=== PATIENT | male | born 1975 | race Caucasian/White ===

== ENCOUNTER 2017-08-16 16:02 | Inpatient (IN) ==
[2017-08-16 16:46] LABS: Basophils # 0.1 K/mcL (0.0-0.2); Basophils % 0.8 %; Eosinophils # 0.2 K/mcL (0.0-0.6); Eosinophils % 2.7 %; Hematocrit 38.6 % (37.5-50.1); Immature Granulocytes % 0.3 % (0-4); Lymphocytes # 2.1 K/mcL (0.6-4.6); Mean Corpuscular HGB Conc 36.3 g/dL (31.6-35.5); Mean Corpuscular Hemoglobin 32.5 pg (28.0-33.3); Mean Corpuscular Volume 89.6 fL (83.0-100.0); Mean Platelet Volume 9.8 fL (9.4-12.4); Monocytes # 0.5 K/mcL (0.0-1.3); Monocytes % 6.6 %; Nucleated Red Blood Cells 0.3 /100 WBC (0); Platelet Count 246 K/mcL (140-400); Red Blood Count 4.31 M/mcL (4.19-5.50); Red Cell Distribution Width 12.3 % (11.5-14.5); Segmented Neutrophils % 63.6 %
[2017-08-16 16:51] LABS: INR 1.1; Prothrombin Time 11.7 Seconds (9.4-12.1)
[2017-08-16 16:54] LABS: Activated Partial Thrombo Time 29.5 Seconds (26.0-36.0)
[2017-08-16 16:56] LABS: D-Dimer < 215 ng/mLFEU (0-500)
[2017-08-16] MEDS ORDERED: Ondansetron 4 MG/2 ML VIAL IVP ONE (17:15)
[2017-08-16] MEDS ORDERED: Aspirin 81 MG TAB.CHEW PO STA (17:25)
--- NOTE | 2017-08-16 17:26 | Emergency Department Note ---
Disposition Clinical Impression: Chest pain Qualifiers: Chest pain type: unspecified Qualified Code(s): R07.9 - Chest pain, unspecified Headache Qualifiers: Headache type: unspecified Headache chronicity pattern: acute headache Intractability: not intractable Qualified Code(s): R51 - Headache Disposition: Admitted As Inpatient Condition: Fair Time of Disposition: 18:53 General Adult HPI - General Chief complaint: ED Chest Pain Stated complaint: chest pain/lethargic/slumped over Source: patient, EMS Mode of arrival: EMS Limitations: no limitations Nursing Notes Reviewed: Yes Vital Signs Reviewed: Yes - History of Present Illness HPI Narrative: Patient is a 41-year-old male that presents the emergency department for severe headache and chest pain. Patient states that he was in an argument with his ex- on the telephone and he developed a severe headache and chest pain that radiated into his left arm. Patient states that he developed the headache and chest pain and then does not remember anything until he woke up in the rain. EMS reports that he did not fall. The people that were at the scene, him and helped him to the ground. There was no other injuries at this time. The patient does state that he has an extensive cardiac history and had a catheter approximately 7 months ago and had 6 stents placed here at [facility]. Patient states that this chest pain is different than when he had his cardiac symptoms. He states that this is more sharp and painful he says his cardiac pain was more slow onset. Pain Scale: 6 - Related Data Home Medications Medication Instructions Recorded Confirmed Insulin NPH, HUMAN [HumuLIN N] 30 unit SQ BID 02/21/16 08/16/17 Carvedilol [Carvedilol] 3.125 mg PO DAILY 08/16/17 08/16/17 Previous Rx's Medication Instructions Recorded Aspirin Enteric Coated [Aspirin EC] 81 mg PO BID #30 tablet. 01/11/17 Atorvastatin [Lipitor] 80 mg PO HS #30 tablet 01/11/17 Clopidogrel [Plavix] 75 mg PO DAILY #30 tablet 01/11/17 Isosorbide MONOnitrate (24 HR) 30 mg PO DAILY #30 tab.er.24h 01/11/17 [Imdur] Lisinopril [Zestril] 5 mg PO DAILY #30 tablet 01/11/17 Nitroglycerin 0.4 mg SL Q5M PRN #30 tab.subl 10/12/17 Allergies Allergy/AdvReac Type Severity Reaction Status Date / Time No Known Allergies Allergy Verified 08/16/17 16:05 All systems ED: reviewed and negative except as stated. Constitutional: Denies: fever Cardiovascular: Reports: chest pain Respiratory: Reports: dyspnea Gastrointestinal: Denies: abdominal pain, nausea, vomiting Neurological: Reports: headache. Denies: weakness, numbness, paresthesias Past Medical History - Past Medical History Medical history: Reports: coronary artery disease, diabetes, GERD, myocardial infarction, other Surgical history: Reports: angioplasty/stent, orthopedic, other, other Psychiatric history: Reports: anxiety, depression - Social History Smoking Status: Former smoker Smokeless Tobacco Status: No Alcohol use: Reports: occasionally Drug use: Reports: none Physical Exam - General Limitations: no limitations General appearance: alert, in no apparent distress - Head Head exam: atraumatic, normocephalic - Eye Eye exam: Present: normal appearance, EOMI - Neck Neck exam: Present: normal inspection, full ROM, trachea midline - Chest Chest inspection: Present: normal inspection, symmetric chest wall rise. Absent : tenderness - Respiratory Respiratory exam: Present: normal lung sounds bilaterally. Absent: respiratory distress, wheezes - Cardiovascular Cardiovascular exam: Present: regular rate, normal rhythm, normal heart sounds, +S1, +S2 - Abdominal Exam Abdominal exam: Present: soft, Non-Tender, normal bowel sounds - Neurological Exam Neurological exam: Present: alert, oriented X3 - Expanded Neurological Exam Speech: Present: fluid speech Cranial nerves: EOM function (II, III, IV, ): Normal, facial sensation (V): Normal, facial palsy (VII): Normal, gag reflex (IX): Normal, spinal accessory function (XI): Normal, tongue deviation (XII): Normal Cerebellar function: finger to nose: Normal, heel to singleton: Normal Motor strength - LUE: 5/5 Motor strength - RUE: 5/5 Motor strength - LLE: 5/5 Motor strength - RLE: 5/5 Upper motor neuron exam: pronator drift: Absent bilaterally Sensory exam upper extremity: light touch: Normal Sensory exam lower extremity: light touch: Normal Coma Scale Eye Opening: Spontaneous Coma Scale Motor Response: Obeys Commands Coma Scale Verbal Response: Oriented Coma Scale Total: 15 - Psychiatric Psychiatric exam: Present: normal affect, normal mood - Skin Skin exam: Present: warm, dry, intact Course - Reevaluation(s) Reevaluation #1: The EMS team that brought the patient to the emergency department called and notified myself at 1719 that instead of giving 6 mg of morphine as directed by the physician and they had mistakenly given 6 mg of Versed in transit. EMS reported that the Versed was in the incorrect place due to being on a shortage of morphine and the wrong medication was administered area they stated that they contacted their certified medical assistant Dr. Oral Porras and then informed myself. Time: 17:19 Vital Signs Temperature 97.6 F 08/16/17 16:08 Pulse Rate 74 08/16/17 16:08 Respiratory Rate 20 08/16/17 16:08 Blood Pressure 152/95 08/16/17 16:08 O2 Sat by Pulse Oximetry 96 08/16/17 16:08 Temperature 97.6 F 08/16/17 16:08 Pulse Rate 71 08/16/17 18:30 Respiratory Rate 20 08/16/17 18:30 Blood Pressure 114/81 08/16/17 18:30 O2 Sat by Pulse Oximetry 97 08/16/17 18:30 Oxygen Delivery Oxygen Delivery Room Air Medical Decision Making - MDM Narrative Medical decision making narrative: Due to the patient presenting to the emergency department with acute onset chest pain and headache we will obtain a cardiac workup including a CBC, BMP, troponin chest x-ray EKG and a d-dimer. The patient having a headache we will obtain a CT of the head to rule out possible intracranial pathology. The patient's CT scan was negative for acute findings. The patient does not have an elevated troponin. His EKG does not show any acute ischemic changes at this time. The remainder of his laboratory testing was unremarkable. However due to the patient having such an extensive cardiac history I feel that is necessary for the patient to be admitted to the hospital for further evaluation and management and ACS rule out. I called and spoke with the hospitalist Dr. Hinojosa and he is except the patient to their service. The patient will be admitted to the hospital for further evaluation and management this time. - Medical Records Medical records reviewed: Yes I reviewed the patient's medical records. - Lab Data Lab results reviewed: Yes I reviewed the patient's lab results. Result diagrams: 08/16/17 16:18 05/17/18 17:27 Lab Results 08/16/17 08/16/17 08/16/17 Range/Units 16:18 16:18 16:18 WBC 7.9 (4.3-11.1) K/mcL RBC 4.31 (4.19-5.50) M/mcL Hgb 14.0 (12.9-16.9) g/dL Hct 38.6 (37.5-50.1) % MCV 89.6 (83.0-100.0) fL MCH 32.5 (28.0-33.3) pg MCHC 36.3 H (31.6-35.5) g/dL RDW 12.3 (11.5-14.5) % Plt Count 246 (140-400) K/mcL MPV 9.8 (9.4-12.4) fL Immature Gran % 0.3 (0-4) % Seg Neutrophils % 63.6 % Lymphocytes % 26.0 % Monocytes % 6.6 % Eosinophils % 2.7 % Basophils % 0.8 % Neutrophils # 5.0 (1.6-8.9) K/mcL Lymphocytes # 2.1 (0.6-4.6) K/mcL Monocytes # 0.5 (0.0-1.3) K/mcL Eosinophils # 0.2 (0.0-0.6) K/mcL Basophils # 0.1 (0.0-0.2) K/mcL Nucleated RBCs/100 WBC 0.3 H (0) /100 WBC PT 11.7 (9.4-12.1) Seconds INR 1.1 APTT 29.5 (26.0-36.0) Seconds D-Dimer < 215 (0-500) ng/mLFEU Sodium Potassium Chloride Carbon Dioxide BUN Creatinine Est GFR ( Amer) Est GFR (Non-Af Amer) BUN/Creatinine Ratio Glucose Calculated Osmolality Calcium Troponin I (< 0.04) ng/mL B-Natriuretic Peptide 14 (Less than 100) pg/mL Specimen Rejected 08/16/17 08/16/17 08/16/17 Range/Units :18 17:20 17:27 WBC (4.3-11.1) K/mcL RBC (4.19-5.50) M/mcL Hgb (12.9-16.9) g/dL Hct (37.5-50.1) % MCV (83.0-100.0) fL MCH (28.0-33.3) pg MCHC (31.6-35.5) g/dL RDW (11.5-14.5) % Plt Count (140-400) K/mcL MPV (9.4-12.4) fL Immature Gran % (0-4) % Seg Neutrophils % % Lymphocytes % % Monocytes % % Eosinophils % % Basophils % % Neutrophils # (1.6-8.9) K/mcL Lymphocytes # (0.6-4.6) K/mcL Monocytes # (0.0-1.3) K/mcL Eosinophils # (0.0-0.6) K/mcL Basophils # (0.0-0.2) K/mcL Nucleated RBCs/100 WBC (0) /100 WBC PT (9.4-12.1) Seconds INR APTT (26.0-36.0) Seconds D-Dimer (0-500) ng/mLFEU Sodium Cancelled 138 Potassium Cancelled 3.5 Chloride Cancelled 105 Carbon Dioxide Cancelled 27 BUN Cancelled 17 Creatinine Cancelled 0.74 Est GFR ( Amer) Cancelled > 60 Est GFR (Non-Af Amer) Cancelled > 60 BUN/Creatinine Ratio Cancelled 23 Glucose Cancelled 95 Calculated Osmolality Cancelled 287 Calcium Cancelled 8.9 Troponin I < 0.03 (< 0.04) ng/mL B-Natriuretic Peptide (Less than 100) pg/mL Specimen Rejected Hemolyzed - Radiology Data Radiology results reviewed: Yes I reviewed the patient's radiology results. Chest X-Ray 08/16/17 16:10 IMPRESSION: No radiographic evidence of acute cardiopulmonary disease. D/ / Enrique Rollins / Enrique Rollins Interpreting Provider: Enrique Rollins Head CT 08/16/17 16:10 IMPRESSION: No acute intracranial abnormality. Mild mucoperiosteal thickening in the left sphenoid sinus. D/ / Cara Zamudio MD / Cara Zamudio MD Interpreting Provider: Cara Zamudio MD - EKG Data EKG #1 EKG attestation: Yes I reviewed and interpreted this EKG. EKG results narrative: EKG shows sinus rhythm with evidence of an incomplete right bundle. At a rate of 78 bpm, AK interval 168, QRS duration 106, QTc of or 36 with a normal axis. There is no evidence of STEMI on EKG. This was compared to previous EKG on 02/16 Attestation Statement - Attestation Attestation: I examined this patient and my medical decision-making was reviewed with the Resident Physician, Dr. Chang. I agree with the documented findings, disposition and treatment plan as described except to the extent set forth below. Patient is a 41-year-old white male with a history of extensive cardiac disease with prior MS, multiple catheterizations requiring stent placement last of which was in December when he said he had 6 stents placed. Patient was in an argument with his ex- on the phone today and during the argument developed gradual onset chest discomfort tightness as well as a generalized headache. Patient became very upset and worked up and subsequently had a syncopal episode. Patient was around others to help him to the ground so he did not fall or injure himself when he had the syncopal episode. When medics arrived he was complaining of severe chest pain and headache. In route they requested medical direction for administration of medication and they were told to administer 6 noted grams of morphine and accidentally had given him 6 mg first that so patient was drowsy on arrival. Patient did not receive aspirin or nitroglycerin in route by EMS. I agree with patient's physical exam findings as documented. I was physically present for initial assessment and report by EMS as well as reevaluation of the patient on the emergency department. Vital signs are stable. Symptoms were improving at time of arrival. Patient's EKG was normal sinus rhythm with no acute ischemic changes appreciated. Patient underwent laboratory evaluation for cardiac complaints as well as sent for CT head for further evaluation of his headache complaints. All of patient's testing up to this point within normal limits and due to extensive cardiac history we will admit him for further evaluation and management. Patient's symptoms have resolved and he is resting comfortably at this time with no complaints. Case was discussed with hospitalist who accepted patient for admission.
[2017-08-16 17:57] LABS: BUN/Creatinine Ratio 23 (6-26); Blood Urea Nitrogen 17 mg/dL (6-20); Calcium 8.9 mg/dL (8.6-10.3); Carbon Dioxide 27 mEq/L (23-29); Chloride 105 mEq/L (98-107); Glucose 95 mg/dL (70-105); Osmolality,Calculated 287 (280-300); Potassium 3.5 mEq/L (3.5-5.1); Sodium 138 mEq/L (136-145); eGFR For African Americans > 60 (> 60); eGFR For Non-African Americans > 60 (> 60)
[2017-08-16] MEDS: Nitroglycerin 0.4 MG TAB.SUBL SL PRN ×2 (18:21→18:26)
[2017-08-16] MEDS ORDERED: Dextrose Gel 15 GM/37.5 ML TUBE PO PRN ×2 (22:07)
[2017-08-16] MEDS ORDERED: Naloxone 0.4 MG/ML INJ IVP PRN (22:07)
[2017-08-16] MEDS ORDERED: D5% in Water 1,000 ML IVC PRN (22:07)
[2017-08-16] MEDS ORDERED: *HR* Dextrose 50 % in Water (Syg) 50 ML SYRINGE IVP PRN (22:07)
[2017-08-16] MEDS ORDERED: Melatonin 3 MG TABLET PO PRN (22:26)
--- NOTE | 2017-08-16 22:29 | Internal Med History&Physical ---
Date of Encounter: 08/16/17 Time of Encounter: 21:00 Internal Medicine - H&P: HPI Chief complaint: "Chest pain" Admitted From: Emergency Dept Plans for Post Hospital Care: Home History of present illness: Mr. Multani is a 41 year old male who presented to ED via EMS for chest pain. He states that he "got into an intense argument on the phone" and started having chest pain. He states pain was located in middle to left chest and radiated in to left arm. He had a headache during this time. He calls it a "migraine," but states that he has not been diagnosed with migraines. He does not have nausea, vomiting, photophobia, phonophobia, or other associated neurological symptoms. Headaches is also diffusely across whole head. He states that he has an extensive cardiac history that started about 2 years ago. He most recently had "6 stents" placed about 7 months ago here. He states that chest pain is now resolved. Headache is now nearly resolved. Labwork in ED, including initial troponin is WNL. I was asked to admit patient for chest pain ruleout. Past Med Surg Social Fam HX - Past Medical History Attestation: Yes The following information was validated with the patient. Medical history: coronary artery disease, diabetes, GERD, myocardial infarction , other Psychiatric history: anxiety, depression - Past Surgical History Surgical History: angioplasty/stent, orthopedic, other, other - Social History Smoking Status: Former smoker Smokeless Tobacco Status: No Alcohol use: occasionally Drug use: none - Family History Father Living Status: Still Living Hx Family Cardiac Disorders: Yes Hx Family Respiratory Disorders: No Hx Family Cancer: No Hx Family GI Disorders: No Hx Family Endocrine Disorder: Yes Hx Family Neuromuscular Disorders: No Hx Family Neurologic Disorders: No Hx Family HEENT Disorders: No Hx Family Autoimmune Disorders: No Mother Hx Family Cardiac Disorders: Yes (CHF) Hx Family Respiratory Disorders: No Hx Family Cancer: No Hx Family GI Disorders: No Hx Family Endocrine Disorder: Yes (DM) Hx Family Neuromuscular Disorders: No Hx Family Neurologic Disorders: No Hx Family HEENT Disorders: No Hx Family Autoimmune Disorders: No - Additional Family History Additional family history: Family history reviewed with patient. Internal Medicine - H&P: Meds Insulin NPH, HUMAN [HumuLIN N] 30 unit SQ BID 02/21/16 [History] Aspirin Enteric Coated [Aspirin EC] 81 mg PO BID #30 tablet. 01/11/17 [Rx] Atorvastatin [Lipitor] 80 mg PO HS #30 tablet 01/11/17 [Rx] Clopidogrel [Plavix] 75 mg PO DAILY #30 tablet 01/11/17 [Rx] Isosorbide MONOnitrate (24 HR) [Imdur] 30 mg PO DAILY #30 tab.er.24h 01/11/17 [ Rx] Lisinopril [Zestril] 5 mg PO DAILY #30 tablet 01/11/17 [Rx] Nitroglycerin 0.4 mg SL Q5M PRN #30 tab.subl 01/11/17 [Rx] Carvedilol [Carvedilol] 3.125 mg PO DAILY 08/16/17 [History] 3 Allergy/AdvReac Type Severity Reaction Status Date / Time No Known Allergies Allergy Verified 08/16/17 16:05 All Systems PM: A 10-system review of systems was performed and is negative for pertinent findings except as documented above in the HPI. - Constitutional Constitutional: no anorexia, no chills, no fatigue, no fever(s), no lethargy, no malaise, no weakness, no weight gain, no weight loss - EENT Eyes: no blurry vision, no diplopia, no dry eye, no irritation, no loss of vision, no photophobia, no seeing flashes, no spots in vision, no other visual disturbances Nose, mouth and throat: no dysphagia, no facial pain, no mouth lesions, no mouth pain, no nasal congestion, no nasal discharge, no sinus pain, no sinus pressure, no sore throat - Cardiovascular Cardiovascular ROS IM: chest pain, no diaphoresis, no dyspnea, no dyspnea on exertion, no edema, no lightheadedness, no palpitations, no syncope - Respiratory Respiratory: no cough, no dyspnea, no hemoptysis, no dyspnea on exertion, no wheezing, no chest congestion, no excessive phlegm production - Gastrointestinal Gastrointestinal: no abdominal pain, no change in bowel habits, no constipation , no diarrhea, no dysphagia, no heartburn, no hematemesis, no hematochezia, no melena, no nausea, no vomiting - Genitourinary Genitourinary ROS male: no difficulty urinating, no dysuria, no flank pain, no hematuria, no urinary frequency, no urinary hesitancy, no urinary incontinence, no urinary urgency - Musculoskeletal Musculoskeletal ROS IM: no arthralgias, no back pain, no joint swelling, no limited range of motion, no muscle weakness, no myalgias, no numbness, no tingling - Integumentary Integumentary IM: no erythema, no new lesions, no rash, no skin ulcer, no jaundice - Neurological Neurological ROS: headache(s), no abnormal gait, no abnormal hearing, no abnormal movements, no abnormal speech, no behavioral changes, no confusion, no dizziness, no focal weakness, no numbness, no paresthesias, no tingling, no vertigo, no weakness - Psychiatric Psychiatric: no anxiety, no behavioral changes, no confusion, no depression, no irritability - Endocrine Endocrine IM: no cold intolerance, no fatigue, no heat intolerance, no polydipsia, no polyphagia, no polyuria - Hematologic/Lymphatic Hematologic/Lymphatic: no easy bleeding, no easy bruising, no lymphadenopathy - Constitutional Vitals: Temp Pulse Resp BP Pulse Ox 97.6 F 73 15 133/74 98 08/16/17 20:48 08/16/17 20:48 08/16/17 20:48 08/16/17 20:48 08/16/17 20:48 General appearance: Present: cooperative, A&O X 3, pleasant, no acute distress, obese, answers questions appropriately - Head Head exam: Present: atraumatic, normal inspection, normocephalic - Eye Eye exam: Present: EOMI, normal appearance, PERRL. Absent: conjunctival injection, nystagmus, scleral icterus - ENT ENT exam: Present: mucous membranes moist, normal external ear exam, normal oropharynx - Neck Neck exam general surgery: Present: supple, trachea midline. Absent: lymphadenopathy, tenderness, thyromegaly - Respiratory Respiratory exam: Present: CTAB. Absent: accessory muscle use, rales, rhonchi, wheezes Additional comments: Normal WOB - Cardiovascular Cardiovascular exam: Present: RRR, +S1, +S2. Absent: diastolic murmur, gallop, rubs, systolic murmur Additional comments: No BLE edema - GI/Abdominal GI/Abdominal exam: Present: normal bowel sounds, soft. Absent: distended, hepatomegaly, mass, splenomegaly, tenderness - Neurological Exam Neurological exam: Present: alert, CN II-XII intact, oriented X3, no focal deficits, strengths equal and symetr throughout. Absent: motor sensory deficit , facial droop, speech deficit - Psychiatric Psychiatric exam: Present: normal affect, normal mood. Absent: agitated, anxious, depressed - Skin Skin exam: Present: dry, intact, warm. Absent: cyanosis, rash Internal Med - H&P Results - Labs CBC & Chem 7: 08/16/17 16:18 08/16/17 17:27 Labs: Cardiac Enzymes 08/16/17 Range/Units 21:15 Troponin I < 0.03 (< 0.04) ng/mL - Assessment and plan (1) Chest pain Current Visit: Yes Status: Acute Assessment and plan: Admit for observation for ACS ruleout. Trend troponin x 3; initial troponin in ED WNL. Start supplemental O2; no SOB at this time. Continue nitro and Tylenol PRN pain; chest pain is resolved at this time. Start telemetry. Obtain ECHO and stress test in AM. Continue home aspirin, lipitor, lisinopril, coreg, and plavix. Start lovenox 40 mg SQ QD and SCDs for DVT prophylaxis. NPO after midnight. Qualifiers: Chest pain type: other chest pain Qualified Code(s): R07.89 - Other chest pain; R07.8 - Other chest pain (2) Headache Current Visit: Yes Status: Acute Assessment and plan: Nearly resolved at this time. Based on history and physical exam, this is not a migraine. Likely tension headache and maybe nitro effect. Start tylenol PRN pain. Can use zofran PRN nausea/vomiting. Qualifiers: Headache type: tension-type Headache chronicity pattern: acute headache Intractability: not intractable Qualified Code(s): G44.209 - Tension-type headache, unspecified, not intractable (3) CAD (coronary artery disease) Current Visit: No Status: Acute Assessment and plan: Management as per above. All home medications continued. Qualifiers: Coronary Disease-Associated Artery/Lesion type: [place] artery [place] vs. transplanted heart: [place] heart Associated angina: without angina Qualified Code(s): I25.10 - Atherosclerotic heart disease of [place] coronary artery without angina pectoris (4) Diabetes Current Visit: No Status: Acute Assessment and plan: He says Type II DM is now well-controlled. Last A1C was "6 something." Start accuchecks and low dose SSI QID AC/HS. Will resume home insulin regimen when taking PO. 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
[2017-08-16] MEDS: Isosorbide MONOnitrate (24 HR) 30 MG TAB.ER.24H PO SCH ×2 (22:39→22:59)
[2017-08-16] MEDS: Insulin NPH 100 UNIT/ML (x5UNIT) SQ SCH (22:40)
[2017-08-16] MEDS: Insulin LISPRO 300 UNITS/3 ML VIAL SQ SCH (22:44)
[2017-08-16] MEDS: 0.9 % Sodium Chloride 1,000 ML IVC SCH (22:56)
[2017-08-17 03:25] LABS: Basophils # 0.1 K/mcL (0.0-0.2); Basophils % 1.2 %; Eosinophils # 0.2 K/mcL (0.0-0.6); Eosinophils % 3.6 %; Hematocrit 38.3 % (37.5-50.1); Hemoglobin 13.8 g/dL (12.9-16.9); Immature Granulocytes % 0.2 % (0-4); Lymphocytes # 2.1 K/mcL (0.6-4.6); Lymphocytes % 34.2 %; Mean Corpuscular Hemoglobin 32.3 pg (28.0-33.3); Mean Corpuscular Volume 89.7 fL (83.0-100.0); Mean Platelet Volume 9.7 fL (9.4-12.4); Monocytes # 0.6 K/mcL (0.0-1.3); Monocytes % 9.9 %; Neutrophils # 3.1 K/mcL (1.6-8.9); Platelet Count 233 K/mcL (140-400); Red Blood Count 4.27 M/mcL (4.19-5.50); Red Cell Distribution Width 12.5 % (11.5-14.5); Segmented Neutrophils % 50.9 %
[2017-08-17 03:40] LABS: BUN/Creatinine Ratio 25 (6-26); Blood Urea Nitrogen 17 mg/dL (6-20); Calcium 8.6 mg/dL (8.6-10.3); Carbon Dioxide 25 mEq/L (23-29); Chloride 108 mEq/L (98-107); Glucose 221 mg/dL (70-105); Osmolality,Calculated 298 (280-300); Potassium 3.8 mEq/L (3.5-5.1); Sodium 140 mEq/L (136-145); eGFR For African Americans > 60 (> 60); eGFR For Non-African Americans > 60 (> 60)
[2017-08-17] MEDS: Insulin LISPRO 300 UNITS/3 ML VIAL SQ SCH ×2 (05:22→17:49)
[2017-08-17] MEDS ORDERED: *HR* Enoxaparin 40 MG/0.4 ML SYRINGE SQ SCH (06:00)
[2017-08-17 09:27] LABS: Estimated Average Glucose 157 mg/dl; Hemoglobin A1C 7.1 %
[2017-08-17] MEDS: Aspirin Enteric Coated 81 MG Tablet PO SCH ×2 (09:40→20:45)
[2017-08-17] MEDS: Insulin NPH 100 UNIT/ML (x5UNIT) SQ SCH ×2 (09:40→20:46)
[2017-08-17] MEDS: Isosorbide MONOnitrate (24 HR) 30 MG TAB.ER.24H PO SCH ×2 (09:41→19:02)
[2017-08-17] MEDS ORDERED: *HR* Heparin 10,000 UNIT/10 ML VIAL ONE (12:29)
[2017-08-17] MEDS ORDERED: Heparin 1,000 UNITS/500 mL 500 ML ONE (12:29)
[2017-08-17] MEDS ORDERED: ISOVUE-370 200 ML INFUS..BTL IV ONE (12:29)
[2017-08-17] MEDS ORDERED: 0.9 % Sodium Chloride 1,000 ML ONE ×2 (12:29→14:12)
--- NOTE | 2017-08-17 12:44 | Cardiology Consult Note ---
Date of Encounter: 08/17/17 Time of Encounter: 12:42 Assessment and Plan (1) Chest pain Current Visit: Yes Status: Acute 41-year-old male with atypical chest pain and multiple cardiac risk factors including diabetes and 6/10 in the last 2 years presents with chest pain. Stress test with inferior and inferior lateral reversible ischemia and ejection fraction of 53% we discussed a left heart catheterization including risks, benefits, and alternatives and the patient agrees to proceed Qualifiers: Chest pain type: unspecified Qualified Code(s): R07.9 - Chest pain, unspecified Discussion w patient/family: The assessment and plan as outlined above was discussed with the patient and/or family members who expressed understanding and agreement. All questions were answered. Thank you for involving us in the care of your patient. Please call with any questions. History of Present Illness Consult date: 08/17/17 Consult reason: chest pain Chief complaint: chest pain History of present illness: Mr. Multani is a 41 year old male diabetic, history of coronary artery disease status post 6 stents in the last 2 years presents with chest pain retrosternal radiating down the left upper extremity associated with the headache. Stress test shows inferior and inferolateral reversible ischemia with a preserved ejection fraction 55% is chest pain-free denies any orthopnea, PND, presyncope or syncope Past Med Surg Social Fam HX - Past Medical History Medical history: coronary artery disease, diabetes, GERD, myocardial infarction , other Psychiatric history: anxiety, depression - Past Surgical History Surgical History: angioplasty/stent, orthopedic, other, other - Social History Smoking Status: Former smoker Smokeless Tobacco Status: No Alcohol use: occasionally Drug use: none - Family History Father Living Status: Still Living Hx Family Cardiac Disorders: Yes Hx Family Respiratory Disorders: No Hx Family Cancer: No Hx Family GI Disorders: No Hx Family Endocrine Disorder: Yes Hx Family Neuromuscular Disorders: No Hx Family Neurologic Disorders: No Hx Family HEENT Disorders: No Hx Family Autoimmune Disorders: No Mother Hx Family Cardiac Disorders: Yes (CHF) Hx Family Respiratory Disorders: No Hx Family Cancer: No Hx Family GI Disorders: No Hx Family Endocrine Disorder: Yes (DM) Hx Family Neuromuscular Disorders: No Hx Family Neurologic Disorders: No Hx Family HEENT Disorders: No Hx Family Autoimmune Disorders: No Medications and Allergies Insulin NPH, HUMAN [HumuLIN N] 30 unit SQ BID 02/21/16 [History] Aspirin Enteric Coated [Aspirin EC] 81 mg PO BID #30 tablet.dr 01/11/17 [Rx] Atorvastatin [Lipitor] 80 mg PO HS #30 tablet 01/11/17 [Rx] Clopidogrel [Plavix] 75 mg PO DAILY #30 tablet 01/11/17 [Rx] Isosorbide MONOnitrate (24 HR) [Imdur] 30 mg PO DAILY #30 tab.er.24h 01/11/17 [ Rx] Lisinopril [Zestril] 5 mg PO DAILY #30 tablet 01/11/17 [Rx] Nitroglycerin 0.4 mg SL Q5M PRN #30 tab.subl 01/11/17 [Rx] Carvedilol [Carvedilol] 3.125 mg PO DAILY 08/16/17 [History] 3 Allergy/AdvReac Type Severity Reaction Status Date / Time No Known Allergies Allergy Verified 08/16/17 16:05 All Systems Review: The remainder of the systems were reviewed and are negative Physical Examination Vital Signs, Last 4 Hours Temp Pulse Resp BP Pulse Ox 08/17/17 10:10 98.2 F 76 15 122/78 97 General: Conversant, No Apparent Distress HEENT: Atraumatic, Normocephaly, Mucus Membranes Moist Neck: No JVD, Normal carotid pulses Cardiac: Reg Rate and Rhythm, Normal S1 and S2, No Murmur Lungs: Normal Breath Sounds, No Wheeze, Rales, Rhonchi Neuro: Alert and responsive, No focal deficits noted Abdomen: Soft, Non-Tender Skin: No rashes noted on visualized skin Musculoskeletal: No Chest Wall Tenderness Extremities: No Clubbing, No Cyanosis, No Edema, Normal Pulses Results 08/17/17 03:09 08/17/17 03:09 Lab Results 08/16/17 08/17/17 08/17/17 21:15 03:09 03:09 WBC 6.1 Hgb 13.8 Hct 38.3 Plt Count 233 Sodium Potassium Chloride Carbon Dioxide BUN Creatinine Glucose Calcium Troponin I < 0.03 < 0.03 08/17/17 08/17/17 03:09 09:23 WBC Hgb Hct Plt Count Sodium 140 Potassium 3.8 Chloride 108 H Carbon Dioxide 25 BUN 17 Creatinine 0.69 L Glucose 221 H Calcium 8.6 Troponin I < 0.03 Consult Discharge Plan - Plan Referrals: Moises Boswell MD [Primary Care Provider] -
--- NOTE | 2017-08-17 13:53 | Internal Med Progress Note ---
Date of Encounter: 08/17/17 Time of Encounter: 13:52 - Assessment and plan (1) Chest pain Current Visit: Yes Status: Acute Assessment and plan: 41-year-old male with history of CAD with stents placement presented with acute onset of chest pain. He underwent stress test today which revealed reversible inferior and lateral wall ischemia. Cardiology was consulted and the left heart cath was planned. - Patient had a CAD and had a 6 stents placed, currently on aspirin and Plavix. - His CV risk factor including hypertension, diabetes, and hyperlipidemia. Risk factor modification discussed with patient including tight control of blood glucose, blood pressure, and low-salt low-fat diet. Qualifiers: Chest pain type: unspecified Qualified Code(s): R07.9 - Chest pain, unspecified (2) Diabetes Current Visit: No Status: Chronic Assessment and plan: Hgb A1c 7.1, BG well controlled, Continue current insulin regimen. 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 Qualifiers: Coronary Disease-Associated Artery/Lesion type: [place] artery [place] vs. transplanted heart: [place] heart Associated angina: without angina Qualified Code(s): I25.10 - Atherosclerotic heart disease of [place] coronary artery without angina pectoris (4) Headache Current Visit: Yes Status: Resolved Qualifiers: Headache type: tension-type Headache chronicity pattern: acute headache Intractability: not intractable Qualified Code(s): G44.209 - Tension-type headache, unspecified, not intractable - Time Spent With Patient Total time spent is greater than 50% in coordination of care (as documented) at patient's floor/unit and/or counseling patient: Greater than 35 minutes - Subjective Interval history: Patient seen and examined in the room, he has no chest pain at this moment. - Constitutional Vitals: Temp Pulse Resp BP Pulse Ox 98.2 F 76 15 122/78 97 08/17/17 10:10 08/17/17 10:10 08/17/17 10:10 08/17/17 10:10 08/17/17 10:10 General appearance: Present: cooperative, A&O X 3, pleasant, no acute distress, obese, answers questions appropriately Exam: PHYSICAL EXAMINATION: GENERAL APPEARANCE: The patient is alert, oriented and in no acute distress. HEENT: Head is normocephalic. The sinuses are nontender. Pupils are equal and reactive. The nares are patent. Oropharynx clear without lesions. NECK: Supple without lymphadenopathy. HEART: Regular rate and rhythm. LUNGS: No crackles or wheezes are heard. ABDOMEN: Soft, nontender, nondistended with good bowel sounds heard. Inguinal area is normal. EXTREMITIES: Without cyanosis, clubbing or edema. NEUROLOGICAL: Gross nonfocal. SKIN: Warm and dry without any rash. Internal Medicine: Result - Labs CBC & Chem 7: 08/17/17 03:09 08/17/17 03:09 Labs: Short CBC 08/17/17 Range/Units 03:09 WBC 6.1 (4.3-11.1) K/mcL Hgb 13.8 (12.9-16.9) g/dL Hct 38.3 (37.5-50.1) % Plt Count 233 (140-400) K/mcL Neutrophils # 3.1 (1.6-8.9) K/mcL BMP 08/17/17 03:09 Sodium 140 Potassium 3.8 Chloride 108 H Carbon Dioxide 25 BUN 17 Creatinine 0.69 L Glucose 221 H Calcium 8.6 Cardiac Enzymes 08/16/17 08/17/17 08/17/17 Range/Units 21:15 03:09 09:23 Troponin I < 0.03 < 0.03 < 0.03 (< 0.04) ng/mL - ABG Interpretation ABG results: PT/INR, D-dimer PT 11.7 Seconds (9.4-12.1) 08/16/17 16:18 D-Dimer < 215 ng/mLFEU (0-500) 08/16/17 16:18 - Impressions Impressions Echocardiogram Limited Views 08/17/17 22:05 Impressions: LVEF 60%. Normal LV chamber size, wall thickness and function. No evidence of a PFO with agitated saline contrast. Left Ventricular Wall Motion: Rest Echo Findings All wall segments showed normal motion. Findings: Study Quality * Technically adequate exam. ECG Findings * Normal sinus rhythm. Left Ventricle * LVEF 60%. * Normal LV chamber size, wall thickness and function. Right Ventricle * Normal right ventricular structure and function. Left Atrium * Mildly dilated left atrium. Right Atrium * Mildly dilated right atrium. Aorta * Normally sized aortic root. Pericardium * The pericardium appears normal. Interatrial Septum * No evidence of a PFO with agitated saline contrast. - VTE Documentation of Mechanical Device: Intermittent pneumatic compression device Consult Discharge Plan - Plan Referrals: Moises Boswell MD [Primary Care Provider] -
[2017-08-17] MEDS ORDERED: *HR* Midazolam HCl 5 MG/5 ML VIAL IVP ONE (14:11)
[2017-08-17] MEDS ORDERED: *HR* Bivalirudin 250 MG VIAL IVC ONE (14:17)
--- NOTE | 2017-08-17 14:19 | Pre-Sedation Evaluation ---
Pre-sedation evaluation - Pre-sedation checklist Procedure: [facility] Recent Vitals: Last Vital Signs Temp 98.2 F 08/17/17 10:10 Pulse 76 08/17/17 10:10 Resp 15 08/17/17 10:10 BP 122/78 08/17/17 10:10 Pulse Ox 97 08/17/17 10:10 H&P (including ROS) documented in medical record: Yes Previous reaction to sedatives/anesthetics: No Dietary Status: NPO after Midnight Dentition: No loose teeth or bridges Possible difficult airway: No ASA Classification *see protocol: CLASS III-Severe systemic disease Plan of Care: Pt appropriate candidate for procedure/moderate/conscious sedation , Risks/benefits of procedure/sedation discussed w/ patient/family, If not NPO; Risk of intake outweiged by necessity to perform procedure
[2017-08-17] MEDS ORDERED: Nitroglycerin 1,000 MCG/10 ML VIAL IV ONE (14:23)
[2017-08-17] MEDS ORDERED: *HR* Midazolam HCl 2 MG/2 ML VIAL ONE (15:00)
--- NOTE | 2017-08-17 16:20 | Cardiothoracic Consult Note ---
Date of Encounter: 08/17/17 Time of Encounter: 16:16 Assessment and Plan (1) CAD (coronary artery disease) Current Visit: No Status: Chronic The assessment and plan as outlined above was discussed with the patient and/or family members who expressed understanding and agreement. All questions were answered. The patient does have triple-vessel disease and is a candidate for coronary artery bypass grafting. He does have in-stent stenosis. He did receive Plavix yesterday and we will stop this. The procedure, its risks, benefits and alternatives were explained and he does wish to proceed. We will tentatively schedule his open heart surgery for Sunday. At this point, the patient and his girlfriend have no questions. Qualifiers: Coronary Disease-Associated Artery/Lesion type: [place] artery [place] vs. transplanted heart: [place] heart Associated angina: without angina Qualified Code(s): I25.10 - Atherosclerotic heart disease of [place] coronary artery without angina pectoris - History of Present Illness History of present illness: Mr. Multani is a 41 year old male The patient is a 41-year-old gentleman who had a myocardial infarction in February 2016. He is also had numerous stents in the past. He has been on daily Plavix and did receive a dose yesterday. He was admitted with chest pain. Troponins have been negative. He did have a positive stress test. Echocardiogram revealed preserved left ventricular function. Cardiac catheterization revealed triple-vessel disease with a 60% LAD lesion, 95% circumflex lesion and 90% mid right coronary artery lesion. The patient has been pain-free in the hospital and is pain free after his cardiac catheterization. Past medical history is notable for diabetes. He is been on insulin for 5-6 years and admitting hemoglobin A1c was above 7. He also has a history of hypertension and hypercholesterolemia. Family history strongly positive for coronary artery disease. Social history. 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 He lives with his girlfriend and several children. He used to smoke 1 pack of cigarettes per day or more but quit in 2016. Rarely drinks alcohol. Review of systems is negative for stroke or TIA. Negative for saphenous vein varicosities or strippings. Past Med Surg Social Fam HX - Past Medical History Medical history: coronary artery disease, diabetes, GERD, myocardial infarction , other Psychiatric history: anxiety, depression - Past Surgical History Surgical History: angioplasty/stent, orthopedic, other, other - Social History Smoking Status: Former smoker Smokeless Tobacco Status: No Alcohol use: occasionally Drug use: none - Family History Father Living Status: Still Living Hx Family Cardiac Disorders: Yes Hx Family Respiratory Disorders: No Hx Family Cancer: No Hx Family GI Disorders: No Hx Family Endocrine Disorder: Yes Hx Family Neuromuscular Disorders: No Hx Family Neurologic Disorders: No Hx Family HEENT Disorders: No Hx Family Autoimmune Disorders: No Mother Hx Family Cardiac Disorders: Yes (CHF) Hx Family Respiratory Disorders: No Hx Family Cancer: No Hx Family GI Disorders: No Hx Family Endocrine Disorder: Yes (DM) Hx Family Neuromuscular Disorders: No Hx Family Neurologic Disorders: No Hx Family HEENT Disorders: No Hx Family Autoimmune Disorders: No Medications and Allergies Insulin NPH, HUMAN [HumuLIN N] 30 unit SQ BID 02/21/16 [History] Aspirin Enteric Coated [Aspirin EC] 81 mg PO BID #30 tablet.dr 01/11/17 [Rx] Atorvastatin [Lipitor] 80 mg PO HS #30 tablet 01/11/17 [Rx] Clopidogrel [Plavix] 75 mg PO DAILY #30 tablet 01/11/17 [Rx] Isosorbide MONOnitrate (24 HR) [Imdur] 30 mg PO DAILY #30 tab.er.24h 01/11/17 [ Rx] Lisinopril [Zestril] 5 mg PO DAILY #30 tablet 01/11/17 [Rx] Nitroglycerin 0.4 mg SL Q5M PRN #30 tab.subl 01/11/17 [Rx] Carvedilol [Carvedilol] 3.125 mg PO DAILY 08/16/17 [History] 3 Allergy/AdvReac Type Severity Reaction Status Date / Time No Known Allergies Allergy Verified 08/16/17 16:05 All Systems Review: The remainder of the systems were reviewed and are negative Physical Examination Pupils are equal, round and reactive to light and accommodation. He has early vascular changes in 1 eye. He has 1 broken tooth. Neck is supple. Trachea in the midline. No thyromegaly or carotid bruits. Lungs are clear to percussion and auscultation. Heart is in a regular rate and rhythm. No murmurs, gallops or rubs. Abdomen is benign. No tenderness, rebound or guarding. Extremities without edema. 2+ pulses. No saphenous vein varicosities or strippings. Cranial nerves, motor and sensory intact. Results 08/17/17 03:09 08/17/17 03:09 Lab Results, Last 24 hours 08/16/17 08/17/17 08/17/17 21:15 03:09 03:09 WBC 6.1 Hgb 13.8 Hct 38.3 Plt Count 233 Sodium Potassium Chloride Carbon Dioxide BUN Creatinine Glucose Calcium Troponin I < 0.03 < 0.03 08/17/17 08/17/17 03:09 09:23 WBC Hgb Hct Plt Count Sodium 140 Potassium 3.8 Chloride 108 H Carbon Dioxide 25 BUN 17 Creatinine 0.69 L Glucose 221 H Calcium 8.6 Troponin I < 0.03 Consult Discharge Plan - Plan Referrals: Moises Boswell MD [Primary Care Provider] -
[2017-08-17] MEDS ORDERED: *HR* Morphine 2 MG/ML SYRINGE ONE ×2 (17:33→17:38)
[2017-08-17] MEDS ORDERED: *HR* Enoxaparin 120 MG/0.8 ML SYRINGE SQ SCH (18:00)
--- NOTE | 2017-08-17 18:39 | Invasive Diagnostic Lab Proc ---
Name: Rocky Multani Date of Study: 08/17/2017 Date: 1975 Ht: 72.8in Medical Record#: [id number] Age: 41 Wt: 242.51lb Gender: Male BSA: 2.33 Order #: [id number] BMI: 32.14 Physicians Procedure Physician: Shiva Mohr DO Referring MD: Referring MD: Staff Name Position Time In Riya Macias RT (R) Scrub 01:03 PM Haleigh Gilian RT (R) Monitor 01:03 PM Lee Mcarthur RN Building Economist 02:05 PM Indications Indication Abnormal Test - Stress Procedures Performed Procedure L HRT ARTERY/VENTRICLE ANGIO IV Doppler BLD Flow 1st Vessel Pre-Procedure Checklist Informed consent is complete signed and on chart. H&P is on chart. ID band is on and ID verified with patient. Patient NPO for procedure The procedure was described for the patient and questions were answered. Blood Pressure: 147/91 ECG is on chart. Rhythm: NSR Plan of Care Patient will tolerate the procedure without complications. Adequate level of comfort will be maintained. Hemodynamics will remain stable Patient will recover from procedure without complications. Respiratory function will be maintained. Cardiac rhythm will remain stable. Patient temperature will be maintained. Patient and/or family have verbalized understanding of the procedure. Patient Education Chief Complaint/Reason for Test: Cardiac Cath Developmental Category: Adult (18-64 years) Developmentally Appropriate for Age: Yes Learning Barriers: None Education Needs: Procedure Education Method: Verbal Information Taught: Cardiac Cath Educational Evaluation: Able to repeat information Intravenous Access Time IV Size Location DC'd Fluid/Drip Rate Units RN 02:13 PM 18g 1 1/4" Patent On Arrival Lt Arm 0.9NaCl ml/hr Lee Mcarthur RN 02:13 PM 18g 1 1/4" Patent On Arrival Rt Hand Allergies No Known Allergies Vital Signs Time BP (mmHg) HR (bpm) O2 Sat. RR (bpm) LOC 02:04 PM 147 / 91 84 99 % 17 5 = Fully awake and oriented or at pre-proc level 02:04 PM / % 5 = Fully awake and oriented or at pre-proc level 02:19 PM / % 4 = Oriented but drowsy 02:34 PM / % 4 = Oriented but drowsy 02:49 PM / % 5 = Fully awake and oriented or at pre-proc level 02:13 PM 147 / 91 79 97 % 1 02:18 PM 131 / 79 79 98 % 9 02:23 PM 127 / 79 77 100 % 6 02:28 PM 125 / 80 70 100 % 6 02:33 PM 128 / 82 82 100 % 16 02:38 PM 116 / 85 75 100 % 14 02:43 PM 134 / 80 71 100 % 8 02:48 PM 138 / 86 75 100 % 8 02:53 PM 141 / 83 75 100 % 11 02:58 PM 137 / 90 80 100 % 13 03:03 PM 122 / 54 78 98 % 13 03:30 PM 127 / 76 77 94 % 16 4 = Oriented but drowsy 03:45 PM 127 / 70 69 99 % 16 5 = Fully awake and oriented or at pre-proc level 04:00 PM 140 / 91 73 99 % 16 5 = Fully awake and oriented or at pre-proc level 04:15 PM 127 / 104 78 99 % 16 5 = Fully awake and oriented or at pre-proc level 04:33 PM 129 / 70 72 97 % 10 5 = Fully awake and oriented or at pre-proc level 04:45 PM 141 / 86 74 98 % 16 5 = Fully awake and oriented or at pre-proc level 05:00 PM 137 / 83 77 97 % 16 5 = Fully awake and oriented or at pre-proc level 05:30 PM 127 / 81 77 98 % 19 5 = Fully awake and oriented or at pre-proc level 05:45 PM 141 / 86 72 96 % 18 5 = Fully awake and oriented or at pre-proc level 06:00 PM 135 / 81 72 97 % 16 5 = Fully awake and oriented or at pre-proc level 06:15 PM 127 / 93 75 98 % 12 5 = Fully awake and oriented or at pre-proc level Procedural Medications Time Medication Dose Units Method Given By 02:11 PM Oxygen 2 L/min nasal cannula Lee Mcarthur RN 02:15 PM Versed 2 mg Intravenous Lee Mcarthur RN 02:30 PM Versed 2 mg Intravenous Lee Mcarthur RN 02:32 PM Lidocaine 2% 10 ml Subcutaneous Shiva Mohr DO 02:46 PM Angiomax 0.75mg/kg bolus: 16.5 ml Intravenous Lee Mcarthur RN 02:46 PM Angiomax 1.75mg/kg/hr: 38.5 ml Intravenous Lee Mcarthur RN 02:52 PM Adenosine 924 ml/hr Intravenous Lee Mcarthur RN 02:57 PM Angiomax 1.75mg/kg/hr: 38.5 ml Dc'd Lee Mcarthur RN 03:00 PM Versed 2 mg Intravenous Lee Mcarthur RN 05:00 PM Tylenol 1000 mg Orally Mary Hutton RN 05:37 PM Morphine 2 mg Intravenous Lee Mcarthur RN ASA Classification: CLASS II- Mild systemic disease (i.e. well-controlled diabetes, hypertension, asthma, cigarette smoking) Tñoa Score Preprocedure Postprocedure Activity 2- Moves 4 extremities sustained head lift Activity Circulation 2- SBP +/= 20 points of pre-anesthetic level Circulation Consciousness 2- Awake and alert oriented x 3 Consciousness O2 Saturation 2- Able to maintain O2 satruation of 92% on room air O2 Saturation Respiratory 2- Able to deep breathe and cough well Respiratory Total Score 10 Total Score Contrast Agent: Isovue Diagnostic Contrast: 80 ml Total Contrast: 80 ml Fluoro Dose: 615 mGy Procedure Log Time Note Enter By 12:38 PM Patient charges- Angio tray pack, Navilyst 3mm J, Pulse Oximetry and ACIST tubing and transducer [email or web address] 01:03 PM Riya Macias RT (R) Position: Scrub Time in: 13:03 [email or web address] 01:03 PM Olaf Gil RT (R) Position: Monitor Time in: 13:03 [email or web address] 02:04 PM CathStat 02:04 PM Pt arrived to labor and delivery registered nurse 1 at 14:04 [email or web address] 02:04 PM Case Delayed No [email or web address] 02:04 PM Time: 14:04 Patient comfortable and pain free: Yes [email or web address] 02:04 PM Time: 14:04LOC: 5 = Fully awake and oriented or at pre-proc level [email or web address] 02:05 PM Lee Mcarthur RN Position: Building Economist Time in: 14:05 [email or web address] 02:09 PM Physician arrived 14:09 [email or web address] 02:09 PM Jame and clarisa completed [email or web address] 02:09 PM Sign in performed according to hospital policy. [email or web address] 02:10 PM Procedure start 14:09 [email or web address] 02:10 PM ASA Class CLASS II- Mild systemic disease (i.e. well-controlled diabetes, hypertension, asthma, cigarette smoking) [email or web address] 02:10 PM Clinical Presentation: Unstable angina [email or web address] 02:10 PM Hair removed from procedure site in procedure lab using clippers. Bilateral groin prepped with Chloraprep by Riya Macias (R), then patient was draped. Skin intact. 02:11 PM Time: 14:11 Oxygen on at 2 L/min per nasal cannula by Lee Mcarthur RN 02:12 PM Vitals capture started with the following parameters, Patient=Adult, Interval=5 min, Initial Avstftpj=124 mmHg, Deflation Rate=3 mmHg, Cuff placed on Right Arm 02:12 PM Recorded ECG: HR=83 Condition=Condition 1 02:13 PM HR=79 bpm, SALK=798/91 mmhg, SpO2=97.0 %, Resp=1 B/min 02:15 PM Time: 14:15 Versed 2 mg Intravenous Given by Lee Mcarthur RN 02:18 PM HR=79 bpm, OHLE=022/79 mmhg, SpO2=98.0 %, Resp=9 B/min 02:19 PM Time: 14:04LOC: 5 = Fully awake and oriented or at pre-proc level 02:19 PM Time: 14:04 Patient comfortable and pain free: Yes 02:20 PM Pressure channel 2 zeroed. 02:21 PM Pressure channel 2 zeroed. 02:23 PM HR=77 bpm, TUWP=289/79 mmhg, YeK3=506.0 %, Resp=6 B/min 02:28 PM HR=70 bpm, DLQV=305/80 mmhg, VuJ0=861.0 %, Resp=6 B/min 02:30 PM Time: 14:30 Versed 2 mg Intravenous Given by Lee Mcarthur RN 02:32 PM Time out performed according to hospital policy 02:33 PM Time: 14:32 10 ml Lidocaine 2% to right groin Subcutaneous Given by Shiva Mohr DO [email or web address] 02:33 PM HR=82 bpm, DPKX=749/82 mmhg, LsJ1=525.0 %, Resp=16 B/min 02:34 PM Micro-Introducer Kit utilized for sheath placement [email or web address] 02:34 PM Time: 14:19 Patient comfortable and pain free: Yes 02:34 PM Time: 14:19LOC: 4 = Oriented but drowsy [email or web address] 02:37 PM Access obtained by percutaneous puncture. 6Fr 10cm Terumo [place] sheath placed in right Femoral artery. [id number] [email or web address] 02:37 PM 0.035 145cm Navilyst 3mmJ wire [id number] [email or web address] 02:37 PM 5Fr FR 4 catheter inserted over the wire [facility] [email or web address] 02:38 PM Catheter selectively placed in left ventricle [email or web address] 02:38 PM Recorded Pressure: LV, HR=80, Condition=Condition 1 (Left Ventricle) LV 93/41/45 02:38 PM HR=75 bpm, LQRE=940/85 mmhg, IcL6=916.0 %, Resp=14 B/min 02:39 PM Recorded Pressure: LV, Ao, HR=71, Condition=Condition 1 (Left Ventricle) LV 127/8/18, (Aorta) Ao 96/9/52 02:39 PM hand injected LV [email or web address] 02:39 PM RCA angiography performed in multiple views. [email or web address] 02:40 PM Catheter removed [email or web address] 02:40 PM 5Fr FL 4 catheter inserted over the wire [facility] [email or web address] 02:41 PM LCA angiography performed in multiple views. [email or web address] 02:41 PM Coronary Dominance: right [email or web address] 02:41 PM Recorded Pressure: Ao, HR=75, Condition=Condition 1 (Aorta) Ao 127/67/93 02:42 PM Physician reviewing films [email or web address] 02:42 PM Recorded Pressure: Ao, HR=75, Condition=Condition 1 (Aorta) Ao 116/68/89 02:42 PM Catheter removed [email or web address] 02:43 PM Inflation device was opened. [email or web address] 02:43 PM HR=71 bpm, CTMR=828/80 mmhg, CmW1=072.0 %, Resp=8 B/min 02:45 PM 6Fr JL4 Runway guide catheter was used to cannulate the PCI vessel successfully. reused? No [email or web address] 02:45 PM Lesion found in Mid RCA. Pre Stenosis: 90 Pre YRIS Flow: [email or web address] 02:45 PM Right Coronary, Right Posterior Descending Arteries with Right Posterolateral and Acute Marginal branches with 90 % stenosis. If graft is supplying this area, 0 % stenosis [email or web address] 02:45 PM Lesion found in Proximal LAD. Pre Stenosis: 60 Pre YRIS Flow: [email or web address] 02:45 PM Proximal Left Anterior Descending Coronary Artery with 60% stenosis. If graft is supplying this territory, 0 % stenosis. [email or web address] 02:45 PM Lesion found in Mid Circumflex. Pre Stenosis: 95 Pre YRIS Flow: [email or web address] 02:45 PM Circumflex, Obtuse Marginal, Left Posterior Descending, and Left Posterolateral Coronary Arteries with 95 % stenosis. If graft is supplying this area, 0 % stenosis [email or web address] 02:46 PM Time: 14:46 Angiomax 0.75mg/kg bolus: 16.5 ml Intravenous Given by Lee Mcarthur RN Mcmillan pump [email or web address] 02:46 PM Time: 14:46 Angiomax 1.75mg/kg/hr: 38.5 ml Intravenous Given by Lee Mcarthur RN Mcmillan pump [email or web address] 02:46 PM .014 PT Graphix 300cm guide wire across target lesion- successful. reused? No [email or web address] 02:46 PM Recorded Pressure: Ao, HR=74, Condition=Condition 1 (Aorta) Ao 118/68/91 02:48 PM wire removed, re shaping [email or web address] 02:48 PM HR=75 bpm, GSQN=040/86 mmhg, CkX3=597.0 %, Resp=8 B/min 02:49 PM Time: 14:34LOC: 4 = Oriented but drowsy [email or web address] 02:50 PM Time: 14:34 Patient comfortable and pain free: Yes [email or web address] 02:50 PM Pressure channel 2 zeroed. 02:51 PM Asist FFR Catheter advanced to target lesion. [email or web address] 02:53 PM HR=75 bpm, UYNT=150/83 mmhg, QnZ4=776.0 %, Resp=11 B/min 02:53 PM Time: 14:52 Adenosine 924 ml/hr administered Intravenous by Lee Mcarthur RN [email or web address] 02:54 PM Recorded Pressure: Ao, Ao, HR=76, Condition=Condition 1 (Aorta) Ao 127/79/101, (Aorta) Ao 116/72/90 02:54 PM Recorded Pressure: Ao, Ao, HR=73, Condition=Condition 1 (Aorta) Ao 135/82/105, (Aorta) Ao 121/72/91 02:55 PM Recorded Pressure: Ao, Ao, HR=76, Condition=Condition 1 (Aorta) Ao 127/78/100, (Aorta) Ao 115/70/89 02:55 PM FFR Measurement: 0.79 [email or web address] 02:55 PM adenosine off lee parsley rn [email or web address] 02:56 PM Flow Wire/Catheter removed intact [email or web address] 02:57 PM Guide wire removed intact. [email or web address] 02:57 PM Time: 14:57 Angiomax 1.75mg/kg/hr: 38.5 ml Dc'd Given by Lee Mcarthur RN Mcmillan pump [email or web address] 02:58 PM Bolus angiogram of right Femoral complete: hand injected [email or web address] 02:58 PM Guide catheter removed intact. [email or web address] 02:58 PM HR=80 bpm, YNRZ=657/90 mmhg, GpR3=269.0 %, Resp=13 B/min 03:00 PM Time: 15:00 Versed 2 mg Intravenous Given by Lee Mcarthur RN [email or web address] 03:02 PM Procedure completed at 15:02 [email or web address] 03:02 PM Sign out completed: Radiation Dose 615.02 mGy Fluoro Time: 4.4 Isovue 370 - 200ml contrast 80 ml given by Shiva Mohr DO. Complications: NoneCardiac Rehab Consult needed: YesConfirmed administered medications: Yes [email or web address] 03:02 PM Isovue 370 - 200ml,1 Bottle(s) used. [email or web address] 03:02 PM Sheath left in place to be pulled on floor/holding areaV+Pad [email or web address] 03:02 PM Estimated Blood Loss: less than 20cc [email or web address] 03:03 PM Physician consulting with [email or web address] 03:03 PM HR=78 bpm, HQER=988/54 mmhg, SpO2=98.0 %, Resp=13 B/min 03:04 PM Post Blood Pressure 122/54 [email or web address] 03:04 PM Information taught Cardiac Cath [email or web address] 03:04 PM Education needs Procedure, Plan of Care, and Disease Process [email or web address] 03:04 PM Learning barriers :Sedated [email or web address] 03:04 PM Education Methods Verbal [email or web address] 03:04 PM Education evaluation Needs further instruction [email or web address] 03:04 PM Site status No bleeding/hematoma - Rt Groin as reported by Riya Macias RT (R) at 15:04 [email or web address] 03:04 PM Opsite applied [email or web address] 03:04 PM Delay to floor Bed availability [email or web address] 03:04 PM Complications: None [email or web address] 03:04 PM Fluoro Time: 4.4 [email or web address] 03:05 PM Time: 14:50 Patient comfortable and pain free: Yes [email or web address] 03:05 PM Time: 14:49LOC: 5 = Fully awake and oriented or at pre-proc level [email or web address] 03:05 PM Isovue 370 - 200ml contrast 80 ml given by . [email or web address] 03:05 PM Radiation Dose 615.02 mGy [email or web address] 03:05 PM Vitals capture stopped. 03:09 PM Family placed in consult room. [email or web address] 03:09 PM Patient out of room: 15:09 [email or web address] 03:19 PM Report given to Mary HARDING Pt taken to Holding room Room #3. 15:19 [email or web address] 03:19 PM Pt will be going to 2N2. Nurse has another pt with a sheath and wanted to get control before taking another patient. RN will call when ready to receive report [email or web address] 03:21 PM Left Main Coronary Artery with 0% stenosis [email or web address] 03:21 PM Proximal Left Anterior Descending Coronary Artery with 60% stenosis. If graft is supplying this territory, 0 % stenosis. [email or web address] 03:21 PM Mid/Distal Left Anterior Descending Coronary Artery and diagonal branches with 0% stenosis. If graft is supplying this area, 0 % stenosis [email or web address] 03:21 PM Circumflex, Obtuse Marginal, Left Posterior Descending, and Left Posterolateral Coronary Arteries with 95 % stenosis. If graft is supplying this area, 0 % stenosis [email or web address] 03:21 PM Right Coronary, Right Posterior Descending Arteries with Right Posterolateral and Acute Marginal branches with 90 % stenosis. If graft is supplying this area, 0 % stenosis [email or web address] 03:21 PM Ramus with 0% stenosis. If graft is supplying this area, 0 % stenosis [email or web address] 03:[address] Stein in to see patient [email or web address] 04:59 PM Complaint: Pain; Pain Score: 4 (1-10); Pain Location: Back; Relief Measure: Medication; Response: . [email or web address] 05:[address] Lundberg notified of meds needed for sheath pull [email or web address] 05:[address] Lundberg replied verbal orders received [email or web address] 05:33 PM Morphine 2mg wasted due to IV infiltrated, Viktoria HARDING witnessed Lorna HARDING waste medication [email or web address] 05:37 PM Time: 17:37 Morphine 2 mg Intravenous Given by Lee Mcarthur RN [email or web address] 05:45 PM Arterial sheath pulled using manual compression and V+ Pad for 20 minutes by Satinder Augustin RN [email or web address] 06:15 PM Site status No bleeding/hematoma - Rt Groin as reported by Satinder Augustin RN at 18:15 [email or web address] 06:16 PM Opsite applied [email or web address] 06:28 PM Delay to floor Bed availability [email or web address] 06:28 PM Patient out of room: 18:28 [email or web address] 06:29 PM Report given to Charisma HARDING Pt taken to 2N Room #3. 18:28 [email or web address] Complications Complication None None Hemodynamics Pressures Site Systolic/A Wave Diastolic/V Wave Mean LV 93 41 45 LV 127 8 18 AO 96 9 52 AO 127 67 93 AO 116 68 89 AO 118 68 91 AO 127 79 101 AO 116 72 90 AO 135 82 105 AO 121 72 91 AO 127 78 100 AO 115 70 89 Post Procedure Information Blood Pressure: 122/54 mmHg Post procedural instructions were given Surgery consult for CABG Site Checks Time Location Status Staff Sheath In? Note 03:04 PM Rt Groin No bleeding/hematoma Riya Macias RT (R) 03:20 PM Rt Groin No bleeding/ No Hematoma Lee Mcarthur RN 03:30 PM Rt Groin No bleeding/ No Hematoma Marybeth Tracey RT (R) 03:45 PM Rt Groin No bleeding/ No Hematoma Marybeth Tracey RT (R) 04:00 PM Rt Groin No bleeding/ No Hematoma Mary Hutton RN 04:15 PM Rt Groin No bleeding/ No Hematoma Mary Hutton RN Yes 04:32 PM Rt Groin No bleeding/ No Hematoma Marybeth Tracey RT (R) Yes 04:45 PM Rt Groin No bleeding/ No Hematoma Mary Hutton RN Yes 05:00 PM Rt Groin No bleeding/ No Hematoma Mary Hutton RN Yes 06:15 PM Rt Groin No bleeding/hematoma Satinder Augustin RN Pulses Time Site Pre-Procedure Post-Procedure Note 08/17/2017 2:13:00 PM Bilateral DP & PT 2+ 08/17/2017 2:13:00 PM Bilateral radial 2+ 08/17/2017 3:30:00 PM Bilateral DP & PT 2+ 08/17/2017 4:00:00 PM Bilateral DP & PT 2+ 08/17/2017 4:15:00 PM Bilateral DP & PT 2+ 08/17/2017 4:33:00 PM Bilateral DP & PT 2+ 08/17/2017 4:45:00 PM Bilateral DP & PT 2+ 08/17/2017 6:15:00 PM Bilateral DP & PT 2+ Updated by Lidia Chang RN on 08/17/2017 6:31:01 PM electronically signed on 08/17/2017 6:32:13 PM with status of Final
[2017-08-17] MEDS: 0.9 % Sodium Chloride 1,000 ML IVC SCH ×2 (18:54)
--- NOTE | 2017-08-17 23:23 | Electrocardiograph Report ---
[address] [address] Test Date: 2017-08-16 Pat Name: [facility] Department: 102 Room: 2N02 Gender: M Photographs Curator: Jhoana : 1975 Requested By: Skip Chang Order Number: [id number] Reading MD: Lina Medina Measurements Intervals [place] Rate: 78 P: -3 SD: 168 QRS: 31 QRSD: 106 T: 21 QT: 403 QTc: 436 Interpretive Statements SINUS RHYTHM INCOMPLETE RIGHT BUNDLE BRANCH BLOCK [90+ ms QRS DURATION, TERMINAL R IN V1/V2, 40+ ms S IN I/aVL/V4/V5/V6] Electronically Signed On 08-17-2017 23:21:52 EDT by Lina Medina
[2017-08-18] MEDS: *HR* Enoxaparin 120 MG/0.8 ML SYRINGE SQ SCH ×3 (00:12→20:22)
[2017-08-18] MEDS: Insulin LISPRO 300 UNITS/3 ML VIAL SQ SCH ×5 (00:13→20:19)
[2017-08-18] MEDS: 0.9 % Sodium Chloride 1,000 ML IVC SCH (05:08)
[2017-08-18] MEDS ORDERED: Adenosine 90 MG/30 ML MLS IV ONE (07:05)
[2017-08-18] MEDS: Insulin NPH 100 UNIT/ML (x5UNIT) SQ SCH ×2 (07:51→20:23)
[2017-08-18] MEDS: Isosorbide MONOnitrate (24 HR) 30 MG TAB.ER.24H PO SCH (07:51)
[2017-08-18] MEDS: Aspirin Enteric Coated 81 MG Tablet PO SCH ×2 (07:51→20:23)
--- NOTE | 2017-08-18 09:46 | Cardiology Progress Note ---
Date of Encounter: 08/18/17 Time of Encounter: 09:00 Assessment and Plan (1) CAD (coronary artery disease) Current Visit: Yes Status: Chronic Patient presents with chest pain, found to have abnormal stress test. LHC: multivessel CAD with ISR, recommend for CT surgery. EF preserved. Dr. Stein consulted and following, plan for CABG on Sunday to allow for plavix wash-out. Given location of lesions and ISR, recommend inpatient stay until CABG. Continue current medications including asa, statin, and BB. Has remained chest pain free overnight. No further recommendations from Cardiology, will sign-off. Please re-consult if needed. Discussed and reviewed with Dr. Medina who agrees with plan as stated above. Qualifiers: Coronary Disease-Associated Artery/Lesion type: [place] artery [place] vs. transplanted heart: [place] heart Associated angina: without angina Qualified Code(s): I25.10 - Atherosclerotic heart disease of [place] coronary artery without angina pectoris Discussion w patient/family: The assessment and plan as outlined above was discussed with the patient and/or family members who expressed understanding and agreement. All questions were answered. Thank you for involving us in the care of your patient. Please call with any questions. The patient was discussed and reviewed with Dr. Medina; Cardiology will sign- off. Subjective Principal diagnosis: Chest pain Interval history: Seen and examined. No chest pain reported overnight. Plan for CABG on Sunday reportedly. No issues with cath site. Objective Vital Signs, Last 4 Hours Temp Pulse Resp BP Pulse Ox 08/18/17 07:56 98.3 F 81 19 111/71 97 General: Conversant, No Apparent Distress HEENT: Atraumatic, Normocephaly, Mucus Membranes Moist Cardiac: Reg Rate and Rhythm, Normal S1 and S2 Lungs: Normal Breath Sounds Neuro: Alert and responsive Abdomen: Soft Skin: No rashes noted on visualized skin Musculoskeletal: No Chest Wall Tenderness Extremities: Other (right groin cath site: no hematoma. No bleeding. +2 DP/PT pulses. ) Results 08/17/17 03:09 08/17/17 03:09 Lab Results 08/17/17 09:23 Troponin I < 0.03 Active Medications Acetaminophen (Tylenol) 1,000 mg PO Q8H PRN PRN Reason: Pain Stop: 02/15/18 22:16 Aspirin (Aspirin Ec) 81 mg PO BID DASHAWN Stop: 02/16/18 09:01 Last Admin: 08/18/17 07:51 Dose: 81 mg Atorvastatin Calcium (Lipitor) 80 mg PO HS DASHAWN Stop: 02/15/18 22:16 Last Admin: 08/17/17 20:45 Dose: 80 mg Carvedilol (Coreg) 3.125 mg PO 0800 DASHAWN Stop: 02/15/18 22:16 Last Admin: 08/18/17 07:51 Dose: 3.125 mg Dextrose/Water (Dextrose 50% (Syg)) 25 ml IVP AD PRN PRN Reason: Hypoglycemia Stop: 02/15/18 22:08 Enoxaparin Sodium (Lovenox) 110 mg 1 mg/kg (110 mg) SQ BID DASHAWN PRN Reason: Protocol Stop: 02/16/18 18:01 Last Admin: 08/18/17 07:50 Dose: 110 mg Glucagon (Glucagen) 1 mg IM ONCE PRN PRN Reason: Hypoglycemia Stop: 02/15/18 22:08 Glucose (Gluctose) 15 gm PO ONCE PRN PRN Reason: Hypoglycemia Stop: 02/15/18 22:08 Glucose (Gluctose) 30 gm PO ONCE PRN PRN Reason: Hypoglycemia Stop: 02/15/18 22:08 Dextrose (Dextrose 5%) 1,000 mls @ 100 mls/hr IVC .Q10H PRN PRN Reason: HYPOGLYCEMIA Stop: 02/15/18 22:08 Insulin Human Lispro (Humalog) 0 units SQ TIDAC [facility] PRN Reason: Protocol Stop: 02/17/18 11:31 Insulin Human NPH (Humulin N) 30 unit SQ BID [facility] Stop: 02/15/18 22:16 Last Admin: 08/18/17 07:51 Dose: 30 unit Isosorbide Mononitrate (Imdur) 30 mg PO DAILY [facility] Stop: 02/15/18 22:16 Last Admin: 08/18/17 07:51 Dose: 30 mg Lisinopril (Zestril) 5 mg PO DAILY [facility] PRN Reason: Protocol Stop: 02/15/18 22:16 Last Admin: 08/18/17 07:51 Dose: 5 mg Melatonin (Melatonin) 9 mg PO HS PRN PRN Reason: Insomnia Stop: 02/15/18 22:27 Last Admin: 08/16/17 22:53 Dose: 9 mg Naloxone HCl (Narcan) 0.4 mg IVP Q2MIN PRN PRN Reason: SEE COMMENTS Stop: 02/15/18 22:08 Nitroglycerin (Nitroglycerin) 0.4 mg SL Q5MIN PRN PRN Reason: Chest Pain Stop: 02/15/18 17:26 Last Admin: 08/16/17 18:26 Dose: 0.4 mg Ondansetron HCl (Zofran) 4 mg IVP Q6HR PRN; Protocol PRN Reason: Nausea And Vomiting Stop: 02/15/18 22:02 - Imaging and Cardiology Echo: report reviewed Cardiac cath: report reviewed - EKG Interpretation EKG results cardiology: personally reviewed - VTE Documentation of Mechanical Device: Intermittent pneumatic compression device Consult Discharge Plan - Plan Referrals: Moises Boswell MD [Primary Care Provider] -
--- NOTE | 2017-08-18 11:02 | Cardiothoracic Progress Note ---
Date of Encounter: 08/18/17 Time of Encounter: 11:00 - Subjective Procedure(s) Performed: Patient seen and examined. In summary, Mr. Multani is a 41-year-old gentleman who had a myocardial infarction in February 2016. He is also had numerous stents in the past by his report He has been on daily Plavix and did receive a dose yesterday. He reports that he got into an argument with his ex- and developed chest pain for which he was admitted. His troponins have been negative. He did have a positive stress test. Echocardiogram revealed preserved left ventricular function. His cardiac catheterization revealed triple-vessel disease with a 60% LAD lesion, 95% circumflex lesion and 90% mid right coronary artery lesion. The patient was admitted for planned CABG. Given that he is taking Plavix his Plavix was discontinued and he is tentatively scheduled for CABG on Sunday of this week. He currently is chest pain free. He denies any new symptoms and is comfortable lying in bed at this time. Notably his labs are normal with exception of some mild hypokalemia. We will start the patient on by mouth potassium supplementation. Vital Signs, Last 4 Hours Temp Pulse Resp BP Pulse Ox 08/18/17 07:56 98.3 F 81 19 111/71 97 Oxgyen Flow Rate Oxygen Flow Rate (LPM) 0 Weight 08/16/17 08/17/17 08/18/17 23:59 23:59 23:59 Weight 109.9 kg 109.9 kg 110 kg - Labs 08/17/17 03:09 08/17/17 03:09 - VTE Documentation of Mechanical Device: Intermittent pneumatic compression device Consult Discharge Plan - Plan Referrals: Moises Boswell MD [Primary Care Provider] -
--- NOTE | 2017-08-18 14:32 | Internal Med Progress Note ---
Date of Encounter: 08/18/17 Time of Encounter: 09:30 - Assessment and plan (1) Chest pain Current Visit: Yes Status: Acute Assessment and plan: admitted with chest pain, serial Troponins negative, but had abnormal stress test with reversible inferior and inferolateral defect; Cardiology was consulted , underwent LHC which showed severe 3vessel disease, recommended elective CABG. CT surgery evaluated, plan for CABG on Sunday after Plavix washout; continue ASA, Lovenox, beta swapnil, statin; Qualifiers: Chest pain type: unspecified Qualified Code(s): R07.9 - Chest pain, unspecified (2) Diabetes Current Visit: Yes Status: Chronic Assessment and plan: blood sugars well-controlled; continue Accucheck blood glucose monitoring with SSI as needed; diabetic diet; HbA1C 7.1%; Qualifiers: Diabetes mellitus type: type 2 Diabetes mellitus retirement insulin use: with retirement use Diabetes mellitus complication status: without complication Qualified Code(s): E11.9 - Type 2 diabetes mellitus without complications; Z79.4 - longterm (current) use of insulin (3) CAD (coronary artery disease) Current Visit: Yes Status: Chronic Assessment and plan: plan as above; Qualifiers: Coronary Disease-Associated Artery/Lesion type: [place] artery [place] vs. transplanted heart: [place] heart Associated angina: without angina Qualified Code(s): I25.10 - Atherosclerotic heart disease of [place] coronary artery without angina pectoris - Time Spent With Patient Total time spent is greater than 50% in coordination of care (as documented) at patient's floor/unit and/or counseling patient: - Subjective Interval history: Reports no further chest pain or dyspnea at this time; no fever/chills, cough, palpitations; requests for sleep medication tonight; awaiting CABG on Sunday; - Constitutional Vitals: Temp Pulse Resp BP Pulse Ox 97.9 F 77 20 118/68 99 08/18/17 11:11 08/18/17 11:11 08/18/17 11:11 08/18/17 11:11 08/18/17 11:11 General appearance: Present: cooperative, A&O X 3, pleasant, obese, answers questions appropriately - Respiratory Respiratory exam: Present: CTAB. Absent: accessory muscle use, rales, rhonchi, wheezes - Cardiovascular Cardiovascular exam: Present: RRR, +S1, +S2. Absent: diastolic murmur, gallop, rubs, systolic murmur - GI/Abdominal GI/Abdominal exam: Present: normal bowel sounds, soft (obese), no peritoneal signs. Absent: distended, tenderness - Extremities Exam Extremities exam: Present: full ROM, warm, radial pulses palpable and symmetrical. Absent: calf tenderness, cyanotic, pedal edema - Neurological Exam Neurological exam: Present: CN II-XII intact, oriented X3, no focal deficits. Absent: pronater drift, facial droop, speech deficit Internal Medicine: Result - Labs CBC & Chem 7: 08/17/17 03:09 08/17/17 03:09 - ABG Interpretation ABG results: PT/INR, D-dimer PT 11.7 Seconds (9.4-12.1) 08/16/17 16:18 D-Dimer < 215 ng/mLFEU (0-500) 08/16/17 16:18 - VTE Documentation of Mechanical Device: Intermittent pneumatic compression device Consult Discharge Plan - Plan Referrals: Moises Boswell MD [Primary Care Provider] -
[2017-08-19] MEDS: Insulin LISPRO 300 UNITS/3 ML VIAL SQ SCH ×4 (07:50→21:28)
[2017-08-19] MEDS: Aspirin Enteric Coated 81 MG Tablet PO SCH ×2 (08:01→21:32)
[2017-08-19] MEDS: Isosorbide MONOnitrate (24 HR) 30 MG TAB.ER.24H PO SCH (08:01)
[2017-08-19] MEDS: *HR* Enoxaparin 120 MG/0.8 ML SYRINGE SQ SCH ×2 (08:01→21:33)
[2017-08-19] MEDS: Insulin NPH 100 UNIT/ML (x5UNIT) SQ SCH ×2 (08:01→21:33)
[2017-08-19] MEDS ORDERED: Ibuprofen 400 MG TABLET PO PRN (09:07)
--- NOTE | 2017-08-19 11:19 | Cardiothoracic Progress Note ---
Date of Encounter: 08/19/17 Time of Encounter: 11:17 - Subjective Procedure(s) Performed: Patient seen and examined. In summary, Mr. Multani is a 41-year-old gentleman who had a myocardial infarction in February 2016. He is also had numerous stents in the past by his report He has been on daily Plavix and did receive a dose yesterday. He reports that he got into an argument with his ex- and developed chest pain for which he was admitted. His troponins have been negative. He did have a positive stress test. Echocardiogram revealed preserved left ventricular function. His cardiac catheterization revealed triple-vessel disease with a 60% LAD lesion, 95% circumflex lesion and 90% mid right coronary artery lesion. The patient was admitted for planned CABG. Given that he is taking Plavix his Plavix was discontinued and he is tentatively scheduled for CABG on Sunday of this week. He currently is chest pain free. Since he was seen yesterday he has been doing well by nursing report. He denies any new symptoms and is comfortable lying in bed at this time. Yesterday he was started on potassium supplementation. Vital Signs, Last 4 Hours Pulse 08/19/17 08:13 83 Weight 08/17/17 08/18/17 08/19/17 23:59 23:59 23:59 Weight 111 kg - Labs 08/17/17 03:09 08/17/17 03:09 - VTE Documentation of Mechanical Device: Intermittent pneumatic compression device Consult Discharge Plan - Plan Referrals: Moises Boswell MD [Primary Care Provider] -
--- NOTE | 2017-08-19 14:15 | Internal Med Progress Note ---
Date of Encounter: 08/19/17 Time of Encounter: 09:15 - Assessment and plan (1) Chest pain Current Visit: Yes Status: Acute Assessment and plan: admitted with chest pain, serial Troponins negative, but had abnormal stress test with reversible inferior and inferolateral defect; Cardiology was consulted , underwent LHC which showed severe 3vessel disease, recommended elective CABG. CT surgery evaluated, plan for CABG on Sunday after Plavix washout; continue ASA, Lovenox, beta swapnil, statin; Qualifiers: Chest pain type: unspecified Qualified Code(s): R07.9 - Chest pain, unspecified (2) Diabetes Current Visit: Yes Status: Chronic Assessment and plan: blood sugars well-controlled; continue Accucheck blood glucose monitoring with SSI as needed; diabetic diet; HbA1C 7.1%; Qualifiers: Diabetes mellitus type: type 2 Diabetes mellitus senior living insulin use: with manager developmental use Diabetes mellitus complication status: without complication Qualified Code(s): E11.9 - Type 2 diabetes mellitus without complications; Z79.4 - nursing home (current) use of insulin (3) CAD (coronary artery disease) Current Visit: Yes Status: Chronic Qualifiers: Coronary Disease-Associated Artery/Lesion type: [place] artery [place] vs. transplanted heart: [place] heart Associated angina: without angina Qualified Code(s): I25.10 - Atherosclerotic heart disease of [place] coronary artery without angina pectoris - Time Spent With Patient Total time spent is greater than 50% in coordination of care (as documented) at patient's floor/unit and/or counseling patient: - Subjective Interval history: Reports persistent headache despite Tylenol; forgot to request Ambien last night , has had 2 restless nights; no chest pain or dyspnea, palpitations, dizziness; - Constitutional Vitals: Temp Pulse Resp BP Pulse Ox 98.3 F 79 16 115/67 97 08/19/17 11:30 08/19/17 11:30 08/19/17 11:30 08/19/17 11:30 08/19/17 11:30 General appearance: Present: cooperative, mild distress, A&O X 3, obese, answers questions appropriately - Respiratory Respiratory exam: Present: CTAB. Absent: accessory muscle use, rales, rhonchi, wheezes - Cardiovascular Cardiovascular exam: Present: RRR, +S1, +S2. Absent: diastolic murmur, gallop, rubs, systolic murmur - GI/Abdominal GI/Abdominal exam: Present: normal bowel sounds, soft (obese), no peritoneal signs. Absent: distended, tenderness Internal Medicine: Result - Labs CBC & Chem 7: 08/17/17 03:09 08/17/17 03:09 - ABG Interpretation ABG results: PT/INR, D-dimer PT 11.7 Seconds (9.4-12.1) 08/16/17 16:18 D-Dimer < 215 ng/mLFEU (0-500) 08/16/17 16:18 - VTE Documentation of Mechanical Device: Intermittent pneumatic compression device Consult Discharge Plan - Plan Referrals: Moises Boswell MD [Primary Care Provider] -
[2017-08-20 01:14] LABS: Basophils # 0.1 K/mcL (0.0-0.2); Basophils % 0.7 %; Eosinophils # 0.2 K/mcL (0.0-0.6); Eosinophils % 2.5 %; Hemoglobin 13.3 g/dL (12.9-16.9); Immature Granulocytes % 0.2 % (0-4); Lymphocytes # 2.6 K/mcL (0.6-4.6); Mean Corpuscular HGB Conc 34.1 g/dL (31.6-35.5); Mean Corpuscular Hemoglobin 30.7 pg (28.0-33.3); Mean Corpuscular Volume 90.1 fL (83.0-100.0); Mean Platelet Volume 9.7 fL (9.4-12.4); Monocytes % 11.9 %; Neutrophils # 4.2 K/mcL (1.6-8.9); Platelet Count 215 K/mcL (140-400); Red Blood Count 4.33 M/mcL (4.19-5.50); Red Cell Distribution Width 12.3 % (11.5-14.5); Segmented Neutrophils % 52.7 %
[2017-08-20 01:19] LABS: INR 1.2; Prothrombin Time 12.7 Seconds (9.4-12.1)
[2017-08-20 01:30] LABS: Activated Partial Thrombo Time 46.8 Seconds (26.0-36.0)
[2017-08-20 01:31] LABS: BUN/Creatinine Ratio 23 (6-26); Blood Urea Nitrogen 15 mg/dL (6-20); Calcium 8.9 mg/dL (8.6-10.3); Carbon Dioxide 28 mEq/L (23-29); Chloride 108 mEq/L (98-107); Glucose 107 mg/dL (70-105); Osmolality,Calculated 293 (280-300); Potassium 3.6 mEq/L (3.5-5.1); Sodium 141 mEq/L (136-145); eGFR For African Americans > 60 (> 60); eGFR For Non-African Americans > 60 (> 60)
[2017-08-20 01:32] LABS: BUN/Creatinine Ratio 23 (6-26); Blood Urea Nitrogen 15 mg/dL (6-20); Calcium 8.9 mg/dL (8.6-10.3); Carbon Dioxide 29 mEq/L (23-29); Chloride 108 mEq/L (98-107); Glucose 106 mg/dL (70-105); Osmolality,Calculated 293 (280-300); Potassium 3.6 mEq/L (3.5-5.1); Sodium 141 mEq/L (136-145); eGFR For African Americans > 60 (> 60); eGFR For Non-African Americans > 60 (> 60)
[2017-08-20] MEDS: Isosorbide MONOnitrate (24 HR) 30 MG TAB.ER.24H PO SCH (08:03)
[2017-08-20] MEDS: Insulin LISPRO 300 UNITS/3 ML VIAL SQ SCH ×4 (08:04→21:42)
[2017-08-20] MEDS: *HR* Enoxaparin 120 MG/0.8 ML SYRINGE SQ SCH (08:04)
[2017-08-20] MEDS: Aspirin Enteric Coated 81 MG Tablet PO SCH ×2 (08:04→21:39)
[2017-08-20] MEDS: Insulin NPH 100 UNIT/ML (x5UNIT) SQ SCH ×2 (08:04→21:39)
--- NOTE | 2017-08-20 08:33 | Anesthesia Evaluation PreOp ---
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: Denies Any Significant HX Other Medical History: Diabetes Type II (on insulin), GERD Anesthesia History: No Prior Anesthetic Complications, Past Anesthesia (ortho sx ) Alcohol Use: occasionally Drug use: none Medications and Allergies Insulin NPH, HUMAN [HumuLIN N] 30 unit SQ BID 02/21/16 [History] Aspirin Enteric Coated [Aspirin EC] 81 mg PO BID #30 tablet.dr 01/11/17 [Rx] Atorvastatin [Lipitor] 80 mg PO HS #30 tablet 01/11/17 [Rx] Clopidogrel [Plavix] 75 mg PO DAILY #30 tablet 01/11/17 [Rx] Isosorbide MONOnitrate (24 HR) [Imdur] 30 mg PO DAILY #30 tab.er.24h 01/11/17 [ Rx] Lisinopril [Zestril] 5 mg PO DAILY #30 tablet 01/11/17 [Rx] Nitroglycerin 0.4 mg SL Q5M PRN #30 tab.subl 01/11/17 [Rx] Carvedilol [Carvedilol] 3.125 mg PO BID 08/16/17 [History] 3 Allergy/AdvReac Type Severity Reaction Status Date / Time No Known Allergies Allergy Verified 08/16/17 16:05 - Meds/Allergy Pre-op Review Medications Reviewed: Yes Allergies Reviewed: Yes Beta Blockers on Current Med List: Yes If Beta Blockers taken, Date/Time (Last Dose taken): today 0600 Anesthesia Results - Labs 08/20/17 01:02 08/20/17 01:02 - Imaging EKG: report reviewed (SINUS RHYTHM INCOMPLETE RIGHT BUNDLE BRANCH BLOCK [90+ ms QRS DURATION, TERMINAL R IN V1/V2, 40+ ms S IN I/aVL/V4/V5/V6]) Additional studies: cath: Impressions: There is severe three vessel coronary artery disease. There is mild LV Dysfunction EF 40% FFR Measurement: 0.79 stress test: Impression: Exercise ECG is negative for ischemia. Gated EF = 54%. Medium sized, moderate intensity, reversible inferior and inferolateral defect consistent with ischemia. Anesthesia Exam Weight: 111kg - HEENT Pupil (Motor): EOMI Mallampati: II Teeth: Normal Oral Opening: Greater than 3 - INDUSTRIAL GAS FITTER LOC: Oriented INDUSTRIAL GAS FITTER Motor: Normal RUE, Normal LUE, Normal RLE, Normal LLE, Normal Face INDUSTRIAL GAS FITTER Sensory: Normal: RUE, LUE, RLE, LLE, Face - Cardiac Rhythm: Regular Murmur: None - Pulmonary Breath Sounds: bilateral Clear Respiratory Effort: Symmetrical Anesthesia Assess/Plan ASA Score: 4 Modified Sena Scale for Level of Consciousness: Cooperative, oriented, and tranquil Anesthetic Plan: General Monitoring Plan: Standard Monitors, A-Line, PAC, RAHUL Recovery Plan: ICU (agrees to GA, lines, RAHUL and blood products)
--- NOTE | 2017-08-20 08:51 | Cardiothoracic Progress Note ---
Date of Encounter: 08/20/17 Time of Encounter: 08:48 - Assessment and plan (1) CAD (coronary artery disease) Current Visit: Yes Status: Chronic The patient is scheduled for open heart surgery tomorrow. I will stop his Lovenox. He did receive the a.m. dose. Operative consent was obtained. Risks of surgery include , stroke, myocardial infarction, bleeding, clots around the heart, DVT, pulmonary embolism, renal or respiratory failure, acute or chronic graft closure, sternal dehiscence and phrenic nerve injury. The procedure, its risks, benefits and alternatives were explained and he does wish to proceed. He has no questions. Qualifiers: Coronary Disease-Associated Artery/Lesion type: [place] artery [place] vs. transplanted heart: [place] heart Associated angina: without angina Qualified Code(s): I25.10 - Atherosclerotic heart disease of [place] coronary artery without angina pectoris - Subjective Interval history: The patient has had no angina or chest pain over the weekend. Vital Signs, Last 4 Hours Temp Pulse Resp BP Pulse Ox 08/20/17 08:16 87 08/20/17 06:55 98.6 F 88 19 108/48 98 Oxgyen Flow Rate Oxygen Flow Rate (LPM) 0 Weight 08/18/17 08/19/17 08/20/17 23:59 23:59 23:59 Weight 111 kg 111.4 kg Lungs are clear to percussion and auscultation. Heart is in a normal sinus rhythm. - Labs 08/20/17 01:02 08/20/17 01:02 Lab Results, Last 24 hours 08/20/17 08/20/17 08/20/17 01:02 01:02 01:02 WBC 8.0 Hgb 13.3 Hct 39.0 Plt Count 215 INR 1.2 APTT 46.8 H D Sodium 141 Potassium 3.6 Chloride 108 H Carbon Dioxide 28 BUN 15 Creatinine 0.66 L Glucose 107 H Calcium 8.9 08/20/17 01:02 WBC Hgb Hct Plt Count INR APTT Sodium 141 Potassium 3.6 Chloride 108 H Carbon Dioxide 29 BUN 15 Creatinine 0.65 L Glucose 106 H Calcium 8.9 - VTE Documentation of Mechanical Device: Intermittent pneumatic compression device Consult Discharge Plan - Plan Referrals: Moises Boswell MD [Primary Care Provider] -
[2017-08-20 10:15] LABS: Chol/HDL Ratio 2.7 (0-4.9)
[2017-08-20] MEDS: ALPRAZolam 0.5 MG TABLET PO PRN ×2 (10:57→21:39)
--- NOTE | 2017-08-20 15:02 | Internal Med Progress Note ---
Date of Encounter: 08/20/17 Time of Encounter: 10:00 - Assessment and plan (1) Chest pain Current Visit: Yes Status: Acute Assessment and plan: admitted with chest pain, serial Troponins negative, but had abnormal stress test with reversible inferior and inferolateral defect; Cardiology was consulted , underwent LHC which showed severe 3vessel disease, recommended elective CABG. CT surgery evaluated, plan for CABG tomorrow, after Plavix washout; continue ASA, beta swapnil, statin; stopped Lovenox per CT surgery; Will give PRN PO Xanax for anxiety; Hospitalist service will sign off at this time, as patient will be cared for by CT surgery while in the ICU until discharge; please reconsult as necessary; Qualifiers: Chest pain type: unspecified Qualified Code(s): R07.9 - Chest pain, unspecified (2) Diabetes Current Visit: Yes Status: Chronic Assessment and plan: blood sugars well-controlled; continue Accucheck blood glucose monitoring with SSI as needed; diabetic diet; HbA1C 7.1%; Qualifiers: Diabetes mellitus type: type 2 Diabetes mellitus termite control servicer insulin use: with termite control servicer use Diabetes mellitus complication status: without complication Qualified Code(s): E11.9 - Type 2 diabetes mellitus without complications; Z79.4 - termite control servicer (current) use of insulin (3) CAD (coronary artery disease) Current Visit: Yes Status: Chronic Qualifiers: Coronary Disease-Associated Artery/Lesion type: [place] artery [place] vs. transplanted heart: [place] heart Associated angina: without angina Qualified Code(s): I25.10 - Atherosclerotic heart disease of [place] coronary artery without angina pectoris - Time Spent With Patient Total time spent is greater than 50% in coordination of care (as documented) at patient's floor/unit and/or counseling patient: - Subjective Interval history: Improved headache; ambulates independently; no chest pain, dyspnea, palpitations ; reports severe anxiety due to upcoming CABG and ICU stay; - Constitutional Vitals: Temp Pulse Resp BP Pulse Ox 98.6 F 87 19 108/48 98 08/20/17 06:55 08/20/17 08:16 08/20/17 06:55 08/20/17 06:55 08/20/17 06:55 General appearance: Present: cooperative, A&O X 3, obese, answers questions appropriately - Respiratory Respiratory exam: Present: CTAB. Absent: accessory muscle use, rales, rhonchi, wheezes - Cardiovascular Cardiovascular exam: Present: RRR, +S1, +S2. Absent: diastolic murmur, gallop, rubs, systolic murmur Internal Medicine: Result - Labs CBC & Chem 7: 08/20/17 01:02 08/20/17 01:02 Labs: Short CBC 08/20/17 Range/Units 01:02 WBC 8.0 (4.3-11.1) K/mcL Hgb 13.3 (12.9-16.9) g/dL Hct 39.0 (37.5-50.1) % Plt Count 215 (140-400) K/mcL Neutrophils # 4.2 (1.6-8.9) K/mcL BMP 08/20/17 08/20/17 01:02 01:02 Sodium 141 141 Potassium 3.6 3.6 Chloride 108 H 108 H Carbon Dioxide 28 29 BUN 15 15 Creatinine 0.66 L 0.65 L Glucose 107 H 106 H Calcium 8.9 8.9 - ABG Interpretation ABG results: PT/INR, D-dimer PT 12.7 Seconds (9.4-12.1) H 08/20/17 01:02 D-Dimer < 215 ng/mLFEU (0-500) 08/16/17 16:18 - VTE Documentation of Mechanical Device: Intermittent pneumatic compression device Consult Discharge Plan - Plan Referrals: Moises Boswell MD [Primary Care Provider] -
[2017-08-20] MEDS ORDERED: Dextrose 50 % in Water (Vial) 30 ML, Sodium Bicarbonate 20 MEQ, Potassium Chloride 15 M... TH ONE (18:11)
[2017-08-20] MEDS ORDERED: Norepinephrine 4 MG in D5% in Water 250 ML IVC PRN (18:11)
[2017-08-20] MEDS ORDERED: Insulin Human Regular 100 UNIT in 0.9 % Sodium Chloride 100 ML IV PRN (18:11)
[2017-08-20] MEDS: Chlorhexidine Rinse 15 ML MOUTHWASH MM SCH (21:39)
[2017-08-20 22:27] LABS: Bilirubin,Urine Negative (Negative); Blood,Urine Negative (Negative); Clarity,Urine Clear (Clear); Color,Urine Yellow (Yellow); Glucose,Urine (UA) 100 mg/dL (Normal); Ketones,Urine Negative (Negative); Leukocyte Esterase,Urine Negative (Negative); Nitrite,Urine Negative (Negative); Protein,Urine 100 mg/dL (Neg-Trace); Specific Gravity,Urine 1.025 (1.010-1.025); Urobilinogen,Urine Normal (Normal)
[2017-08-20 22:30] LABS: Bacteria,Urine None Seen per hpf (None-Few); Hyaline Casts,Urine None Seen per lpf (None-Few); Squamous Epithelial Cell,Urine Few per lpf (None-Few); WBC,Urine 0-3 per hpf (0-3)
[2017-08-21] MEDS ORDERED: CeFAZolin Syr 2,000MG/20 ML 2,000 MG/20 ML SYRINGE IVPB ONE (06:00)
[2017-08-21] MEDS ORDERED: Aspirin 81 MG TAB.CHEW PO ONE (06:00)
[2017-08-21] MEDS: Chlorhexidine Rinse 15 ML MOUTHWASH MM SCH ×2 (06:03→19:48)
[2017-08-21] MEDS ORDERED: Verapamil 5 MG/2 ML VIAL ONE (06:43)
[2017-08-21] MEDS ORDERED: *HR* Rocuronium Bromide 50 MG/5 ML VIAL ONE ×2 (06:48→10:29)
[2017-08-21] MEDS ORDERED: Famotidine 20 MG/2 ML VIAL ONE (06:48)
[2017-08-21] MEDS ORDERED: *HR* Etomidate 20 MG/10 ML AMPUL IVP ONE (06:48)
[2017-08-21] MEDS ORDERED: *HR* PHENYLEPHRINE 1,000 MCG/10 ML SYRINGE IVP ONE (06:48)
[2017-08-21] MEDS ORDERED: Protamine Sulfate 250 MG/25 ML VIAL IVP ONE (06:49)
[2017-08-21] MEDS ORDERED: Tranexamic Acid 1,000 MG/10 ML VIAL ONE ×2 (06:49→10:20)
[2017-08-21] MEDS ORDERED: *HR* Midazolam HCl 5 MG/5 ML VIAL IVP ONE (06:54)
[2017-08-21] MEDS ORDERED: *HR* FentaNYL (PF) 1,000 MCG/20 ML VIAL ONE (06:54)
[2017-08-21] MEDS ORDERED: NiCARdipine 2.5 MG/10 ML Syringe IVPB ONE (06:57)
[2017-08-21] MEDS ORDERED: Nitroglycerin 25 MG/250 ML INFUS..BTL IVC ONE (06:57)
[2017-08-21] MEDS ORDERED: Norepinephrine 4 MG in D5% in Water 250 ML IVC PRN (07:45)
[2017-08-21] MEDS ORDERED: Dextrose 50 % in Water (Vial) 30 ML, Sodium Bicarbonate 20 MEQ, Lidocaine 1% 5 ML, Insu... TH SCH ×3 (07:45)
[2017-08-21] MEDS ORDERED: Heparin 15,000 UNIT in 0.9 % Sodium Chloride 500 ML IV SCH (07:45)
[2017-08-21] MEDS ORDERED: Dextrose 50 % in Water (Vial) 30 ML, Sodium Bicarbonate 20 MEQ, Potassium Chloride 15 M... TH ONE (07:45)
[2017-08-21 08:22] LABS: VBG Base Excess 0 mEq/L; VBG Chloride 106 mEq/L (98-107); VBG Glucose 127 mg/dl (65-95); VBG HCO3 27 mEq/L (21-27); VBG Ionized Calcium 1.17 mmol/L (1.15-1.35); VBG Oxygen Saturation 100 %; VBG PCO2 51 mmHg (41-51); VBG PH 7.33 pH Units (7.32-7.42); VBG PO2 350 mmHg (25-50); VBG Total CO2 29 mEq/L
[2017-08-21 09:18] LABS: ABG Base Excess 2 mEq/L (-2 to 3); ABG Chloride 106 mEq/L (98-107); ABG Glucose 212 mg/dL (60-95); ABG HCO3 29 mEq/L (21-27); ABG Ionized Calcium 1.18 mmol/L (1.15-1.35); ABG Oxygen Saturation 100 % (95-98); ABG PCO2 56 mmHg (35-45); ABG PH 7.32 pH Units (7.32-7.45); ABG PO2 449 mmHg (85-104); ABG TCO2 31 mEq/L (20-26)
--- NOTE | 2017-08-21 09:37 | Anesthesia Procedures ---
Date of Encounter: 08/21/17 Time of Encounter: 07:45 Procedures: Anesthesia - Arterial Line Consent obtained: written consent Time out performed: Yes Sedation: Versed (mg): 3 Sedation: Fentanyl (mcg): 150 Supplemental Oxygen via Nasal Cannula (L/min): 2 Local Anesthetic: Lidocaine 1% Amount of Anesthetic used (mls): 1 Size (Gauge): 20 Length (inches): 5 Technique Used: sterile prep, guide wire technique, direct puncture technique Post-Procedure: line taped into place, dry sterile dressing placed Patient tolerated procedure: well, no complications Complications: none Site: Radial L - Central Line Placement Right IJ Consent obtained: written consent Time out performed: Yes Patient placed on monitor/pulse ox: Yes prep: mask, gown, gloves, other Central line prep: Chlorhexidine scrub Ultrasound used for placement: Yes Technique: Seldinger Lumen Inserted: Introducer Post procedure: sutured in place, good blood return, all ports aspirated, flushed, capped, sterile dressing applied Patient tolerated procedure: well, no complications Complications: none Comments: introducer placed easily, swan placed without arrythmias, wedge approx 58cm
[2017-08-21 09:53] LABS: ABG Base Excess 1 mEq/L (-2 to 3); ABG Chloride 99 mEq/L (98-107); ABG Glucose 295 mg/dL (60-95); ABG HCO3 27 mEq/L (21-27); ABG Ionized Calcium 0.93 mmol/L (1.15-1.35); ABG Oxygen Saturation 100 % (95-98); ABG PCO2 49 mmHg (35-45); ABG PH 7.35 pH Units (7.32-7.45); ABG PO2 598 mmHg (85-104); ABG TCO2 28 mEq/L (20-26)
[2017-08-21 10:18] LABS: ABG Base Excess 2 mEq/L (-2 to 3); ABG Chloride 100 mEq/L (98-107); ABG Glucose 303 mg/dL (60-95); ABG HCO3 27 mEq/L (21-27); ABG Ionized Calcium 0.94 mmol/L (1.15-1.35); ABG Oxygen Saturation 100 % (95-98); ABG PCO2 44 mmHg (35-45); ABG PO2 620 mmHg (85-104); ABG TCO2 29 mEq/L (20-26)
[2017-08-21 10:50] LABS: ABG Base Excess 4 mEq/L (-2 to 3); ABG Chloride 100 mEq/L (98-107); ABG Glucose 264 mg/dL (60-95); ABG HCO3 29 mEq/L (21-27); ABG Ionized Calcium 0.97 mmol/L (1.15-1.35); ABG Oxygen Saturation 100 % (95-98); ABG PCO2 45 mmHg (35-45); ABG PH 7.42 pH Units (7.32-7.45); ABG PO2 488 mmHg (85-104); ABG TCO2 31 mEq/L (20-26)
[2017-08-21 11:31] LABS: ABG Base Excess 1 mEq/L (-2 to 3); ABG Chloride 105 mEq/L (98-107); ABG Glucose 180 mg/dL (60-95); ABG HCO3 26 mEq/L (21-27); ABG Ionized Calcium 1.37 mmol/L (1.15-1.35); ABG Oxygen Saturation 96 % (95-98); ABG PCO2 47 mmHg (35-45); ABG PH 7.35 pH Units (7.32-7.45); ABG PO2 84 mmHg (85-104); ABG TCO2 28 mEq/L (20-26)
[2017-08-21] MEDS ORDERED: Albumin Human 5% 50.0 GM/1,000 ML VIAL ONE (11:34)
[2017-08-21] MEDS ORDERED: *HR* Heparin 10,000 UNIT/10 ML VIAL IV ONE (11:40)
[2017-08-21] MEDS ORDERED: Mannitol 25% vial 12.5 GM/50 ML VIAL IVP ONE (11:40)
[2017-08-21] MEDS ORDERED: *HR* Phenylephrine 10 MG/ML VIAL IVC ONE (11:40)
[2017-08-21] MEDS ORDERED: Tranexamic Acid 1,000 MG/10 ML VIAL IVPB ONE (11:40)
[2017-08-21] MEDS ORDERED: *HR* Magnesium Sulfate 2 GM/50 ML PIGGYBACK IVPB ONE (11:40)
[2017-08-21] MEDS ORDERED: Albumin Human 25% 25 GM/100 ML IV.SOLN IV ONE (11:40)
[2017-08-21] MEDS ORDERED: Lidocaine 2% Syringe 100 MG/5 ML IV ONE (11:40)
[2017-08-21] MEDS ORDERED: *HR* Dextrose 50 % in Water (Syg) 50 ML SYRINGE IVP PRN (11:43)
[2017-08-21] MEDS ORDERED: Potassium Chloride 40 MEQ/200 ML BAG IVPB PRN (11:43)
[2017-08-21] MEDS ORDERED: Insulin Regular, Human 100 UNIT/ML IV PRN (11:43)
[2017-08-21] MEDS ORDERED: *HR* Promethazine 25 MG/ML VIAL IVP PRN (11:43)
[2017-08-21] MEDS ORDERED: Acetaminophen 325 MG TABLET PO PRN (11:43)
[2017-08-21] MEDS ORDERED: Insulin Human Regular 100 UNIT in 0.9 % Sodium Chloride 100 ML IVC SCH (11:45)
[2017-08-21] MEDS: 0.9 % Sodium Chloride w KCl 20 MEQ/1,000 ML MLS IVC SCH (12:21)
[2017-08-21 12:24] LABS: ABG Base Excess 2 mEq/L (-2 to 3); ABG HCO3 28 mEq/L (21-27); ABG Oxygen Saturation 99 % (95-98); ABG PCO2 47 mmHg (35-45); ABG PH 7.38 pH Units (7.32-7.45); ABG PO2 119 mmHg (85-104); ABG TCO2 29 mEq/L (20-26); Blood Gas Modality ASSIST CONTROL; Blood Gas PEEP 5 cm H2O; Blood Gas Respiration Rate 12; Blood Gas VT 750 cc
[2017-08-21 12:30] LABS: Basophils # 0.1 K/mcL (0.0-0.2); Basophils % 0.4 %; Eosinophils # 0.3 K/mcL (0.0-0.6); Hematocrit 31.9 % (37.5-50.1); Immature Granulocytes % 0.9 % (0-4); Lymphocytes # 2.3 K/mcL (0.6-4.6); Mean Corpuscular HGB Conc 36.1 g/dL (31.6-35.5); Mean Corpuscular Hemoglobin 32.7 pg (28.0-33.3); Mean Corpuscular Volume 90.6 fL (83.0-100.0); Mean Platelet Volume 9.5 fL (9.4-12.4); Monocytes # 0.3 K/mcL (0.0-1.3); Monocytes % 2.5 %; Neutrophils # 9.8 K/mcL (1.6-8.9); Platelet Count 118 K/mcL (140-400); Red Blood Count 3.52 M/mcL (4.19-5.50); Red Cell Distribution Width 12.2 % (11.5-14.5); Segmented Neutrophils % 76.2 %
[2017-08-21 12:31] LABS: Hemoglobin 11.5 g/dL (12.9-16.9)
[2017-08-21 12:35] LABS: INR 1.4; Prothrombin Time 15.6 Seconds (9.4-12.1)
[2017-08-21 12:38] LABS: Activated Partial Thrombo Time 28.8 Seconds (26.0-36.0)
[2017-08-21 12:45] LABS: BUN/Creatinine Ratio 19 (6-26); Blood Urea Nitrogen 12 mg/dL (6-20); Calcium 8.2 mg/dL (8.6-10.3); Carbon Dioxide 27 mEq/L (23-29); Chloride 109 mEq/L (98-107); Glucose 112 mg/dL (70-105); Magnesium 2.1 mg/dL (1.6-2.6); Osmolality,Calculated 289 (280-300); Potassium 3.9 mEq/L (3.5-5.1); Sodium 139 mEq/L (136-145); eGFR For African Americans > 60 (> 60); eGFR For Non-African Americans > 60 (> 60)
--- NOTE | 2017-08-21 13:15 | Operative Note ---
Date of procedure: 08/21/17 Was there an drafter assistant present: Yes Coordinator Of Rehabilitation Services: Jonnie Bell Estimated blood loss (cc): 750 Specimen: RCA endart Condition: stable Disposition: ICU Procedure in Detail: Preoperative diagnosis. Coronary artery disease. Postoperative diagnosis. Same. Procedures. Coronary artery bypass grafting 3 with the left internal mammary artery to the LAD and saphenous vein grafts to the posterior descending branch of the right coronary artery and obtuse marginal branch of the circumflex coronary artery with saphenous vein. Also, right coronary artery endarterectomy. The patient is a 41-year-old gentleman with a history of insulin appended diabetes. He has had numerous stents in the past. He presented with unstable angina. Cardiac catheterization revealed severe triple vessel disease and he was referred for surgery. He was brought to the operating room where he was prepped and draped in standard fashion. A piece of saphenous vein was harvested from the right ankle to the right groin. This was done through 2 small incisions using the scope. These incisions were subsidy closed using a deep layer of 0 Vicryl and a 2-0 Vicryl subcuticular stitch. Standard median sternotomy was performed. The mammary retractor was inserted and the left internal mammary artery was harvested in standard fashion using the Bovie electrocoagulation. Following this, the mammary retractor was removed and the standard sternal massage coordinator was inserted. Pericardium was opened in the midline and suspended with 2-0 silk stay sutures. Double pursestring of 200 [place] was placed in the aorta for the aortic cannulation site. A pursestring of 20 [place] was placed in the right atrial appendage for the venous uptake. The patient was heparinized. The aorta was cannulated without difficulty. 2 stage venous uptake cannula was inserted through the right atrial appendage. A pursestring of 3-0 silk was placed in the aorta and the cardioplegia needle was inserted through here. This is also uses an active and passive aortic vent. The patient was placed on cardiopulmonary bypass and cooled. The aorta was crossclamped and antegrade cardioplegia was given. Topical cooling with iced saline slush was also done. Attention was first turned to the right coronary artery. The posterior descending branch was quite small. We opened the distal right coronary artery with the [place] blade and the Hernandez scissors. However, it had severe diffuse disease and was not graftable. We did perform a right coronary endarterectomy. This was done with the forceps and the endarterectomy spatula. The plaque was sent for permanent pathology. However, a probe would not pass distally or proximally. Therefore, the right coronary artery was closed at this point using a 6-0 Prolene. We turned our attention again to the posterior descending branch. This was opened with a [place] blade and the Hernandez scissors. It was quite a small vessel having a lumen of 1 mm. A standard end-to-side anastomosis was constructed using the saphenous vein and a 7-0 Prolene. At this point, the patient received additional antegrade cardioplegia. Attention was turned to the circumflex. The obtuse marginal branch was dissected free with the [place] blade and opened with a [place] blade and the Hernandez scissors. This had a lumen of 1-1/2 mm with mild diffuse disease. A standard end-to-side anastomosis was constructed using the saphenous vein and a 7-0 Prolene. At this point the patient received the last dose of antegrade cardioplegia. Mammary pedicle was harvested. Tonsil clamp was placed distally and was divided with the Metzenbaum scissors. Distal end was tied off with a 2-0 silk suture. Proximal end was trimmed and brought into the wound. The LAD was found to be intramyocardial. It was dissected free from the muscle in its midportion. This was done distal to the stents. It had a lumen of 1-1/2 mm with moderate diffuse disease. A standard end-to- side anastomosis was constructed using the mammary artery and a 7-0 Prolene. When this is completed, the previously placed bulldog clamp was removed and the hemostasis was good. Pedicle was tacked to the surface heart using interrupted 5-0 silk sutures. We did place some fibrillar and FloSeal around the distal anastomosis. Cross-clamp was removed and rewarming was begun. Total cross- clamp time was 62 minutes. Side biting clamp was placed on the aorta and the cardioplegia needle was removed. 2 holes were made in the aorta using a [place] blade and the 4.0 mm aortic punch. 2 proximal anastomoses were constructed in standard fashion using the saphenous veins and 5-0 Prolene's. At this point, the side-biting clamp was removed. Grafts were de-aired using #25-gauge needle and the previously placed bulldog clamps were removed. Distal anastomoses were inspected and found to be hemostatic. Proximal anastomoses were marked with a marker from [employer] sponge. A pair of ventricular pacing wires was left. A 32 right angle chest tube in the left pleural space. A 32 right angle chest tube into the pericardial well. A 42 mediastinal chest tube. The patient was weaned from bypass, decannulated and given protamine. Pericardium was left open. We did use platelet rich and platelet poor plasma on the sternum and tissues above the sternum. Sternum was closed with #7 sternal wires in simple and [id number] fashion. Fascia was run with #1 Vicryl. Subcutaneous tissues with a 2-0 Vicryl. Skin was closed with a 3-0 Vicryl subcuticular stitch. The patient tolerated the procedure well and was returned to intensive care unit in satisfactory and stable condition. Total bypass time 98 minutes. Total cross-clamp time 62 minutes. He been cooled to 34.4 degrees. It should be noted that we took the right greater saphenous vein from ankle to groin.
[2017-08-21] MEDS: *HR* FentaNYL (PF) 100 MCG/2 ML VIAL IVP PRN ×4 (13:41→22:37)
[2017-08-21] MEDS: *HR* OxyCODONE/APAP 5/325 TABLET PO PRN (14:36)
[2017-08-21] MEDS: Nitroglycerin 25 MG/250 ML INFUS..BTL IVC SCH ×2 (15:02→22:15)
[2017-08-21 15:33] LABS: ABG Base Excess 0 mEq/L (-2 to 3); ABG HCO3 25 mEq/L (21-27); ABG Oxygen Saturation 97 % (95-98); ABG PCO2 38 mmHg (35-45); ABG PH 7.42 pH Units (7.32-7.45); ABG PO2 91 mmHg (85-104); ABG TCO2 26 mEq/L (20-26); Blood Gas Modality CPAP/PS; Blood Gas PEEP 5 cm H2O; Blood Gas Pressure Support 10 cm H2O
[2017-08-21] MEDS: CeFAZolin Pre 2,000 MG/100 ML 2,000 MG/100 ML BAG IVPB SCH ×2 (16:09→23:06)
[2017-08-21] MEDS: Ketorolac 15 MG/ML VIAL IVP SCH ×2 (16:33→23:05)
--- NOTE | 2017-08-21 16:56 | Electrocardiograph Report ---
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
[2017-08-21 17:08] LABS: ABG Base Excess 2 mEq/L (-2 to 3); ABG HCO3 28 mEq/L (21-27); ABG Oxygen Saturation 97 % (95-98); ABG PCO2 46 mmHg (35-45); ABG PH 7.39 pH Units (7.32-7.45); ABG PO2 93 mmHg (85-104); ABG TCO2 29 mEq/L (20-26)
[2017-08-21] MEDS: niCARdipine 40 MG/200 ML MLS IVC SCH ×2 (19:28→22:15)
[2017-08-21] MEDS: Norepinephrine 4 MG in D5% in Water 250 ML IVC SCH ×2 (19:28→22:03)
[2017-08-21] MEDS: Aspirin Enteric Coated 81 MG Tablet PO SCH ×2 (19:28→19:48)
[2017-08-21] MEDS: Isosorbide MONOnitrate (24 HR) 30 MG TAB.ER.24H PO SCH (19:28)
[2017-08-21] MEDS: Ondansetron 4 MG/2 ML VIAL IVP PRN (19:48)
[2017-08-22] MEDS: 0.9 % Sodium Chloride w KCl 20 MEQ/1,000 ML MLS IVC SCH (01:54)
[2017-08-22] MEDS: *HR* FentaNYL (PF) 100 MCG/2 ML VIAL IVP PRN ×6 (01:56→20:37)
[2017-08-22] MEDS: niCARdipine 40 MG/200 ML MLS IVC SCH ×3 (03:08→20:00)
[2017-08-22] MEDS: Nitroglycerin 25 MG/250 ML INFUS..BTL IVC SCH (03:08)
[2017-08-22 03:59] LABS: Basophils % 0.3 %; Eosinophils % 0.1 %; Hemoglobin 11.2 g/dL (12.9-16.9); Immature Granulocytes % 0.6 % (0-4); Lymphocytes # 0.8 K/mcL (0.6-4.6); Lymphocytes % 6.4 %; Mean Corpuscular Hemoglobin 31.9 pg (28.0-33.3); Mean Corpuscular Volume 91.2 fL (83.0-100.0); Monocytes # 1.3 K/mcL (0.0-1.3); Monocytes % 10.5 %; Neutrophils # 10.3 K/mcL (1.6-8.9); Platelet Count 142 K/mcL (140-400); Red Blood Count 3.51 M/mcL (4.19-5.50); Red Cell Distribution Width 12.4 % (11.5-14.5); Segmented Neutrophils % 82.1 %
[2017-08-22 04:04] LABS: INR 1.4; Prothrombin Time 14.8 Seconds (9.4-12.1)
[2017-08-22 04:06] LABS: Activated Partial Thrombo Time 29.8 Seconds (26.0-36.0)
[2017-08-22 04:24] LABS: BUN/Creatinine Ratio 22 (6-26); Blood Urea Nitrogen 18 mg/dL (6-20); Calcium 7.9 mg/dL (8.6-10.3); Carbon Dioxide 24 mEq/L (23-29); Chloride 107 mEq/L (98-107); Glucose 149 mg/dL (70-105); Magnesium 1.8 mg/dL (1.6-2.6); Osmolality,Calculated 289 (280-300); Potassium 5.1 mEq/L (3.5-5.1); Sodium 137 mEq/L (136-145); eGFR For African Americans > 60 (> 60); eGFR For Non-African Americans > 60 (> 60)
[2017-08-22] MEDS: Ketorolac 15 MG/ML VIAL IVP SCH ×4 (05:02→23:46)
--- NOTE | 2017-08-22 06:41 | Cardiothoracic Progress Note ---
Date of Encounter: 08/22/17 Time of Encounter: 06:38 - Assessment and plan (1) CAD (coronary artery disease) Current Visit: Yes Status: Chronic We will discontinue the IV fluids, arterial line and Mazon-Jack catheter. We will leave the Kinney per the patient's request. We will leave the patient in the ICU today for pain control. Qualifiers: Coronary Disease-Associated Artery/Lesion type: [place] artery [place] vs. transplanted heart: [place] heart Associated angina: without angina Qualified Code(s): I25.10 - Atherosclerotic heart disease of [place] coronary artery without angina pectoris - Subjective Interval history: The patient states that his pain is well controlled on the present regimen. He does request that we leave his Kinney catheter until the chest tubes are removed. Vital Signs, Last 4 Hours Temp Pulse Resp BP Pulse Ox 08/22/17 06:00 100.0 F H 93 23 119/53 100 08/22/17 05:00 100.6 F H 101 26 125/57 99 08/22/17 04:00 100.2 F H 97 28 118/57 100 08/22/17 03:55 98 08/22/17 03:26 14 99 08/22/17 03:00 99.9 F H 98 28 116/57 98 Oxgyen Flow Rate Oxygen Flow Rate (LPM) 2 Clinical Data, last 8 Hours Output, Chest Tube Drainage 4 Amount [Mediastinal #3] Output, Chest Tube Drainage 5 Amount [Mediastinal #3] Output, Chest Tube Drainage 0 Amount [Mediastinal #3] Output, Chest Tube Drainage 0 Amount [Mediastinal #3] Output, Chest Tube Drainage 0 Amount [Mediastinal #3] Output, Chest Tube Drainage 0 Amount [Mediastinal #3] Output, Chest Tube Drainage 6 Amount [Mediastinal #3] Output, Chest Tube Drainage 3 Amount [Mediastinal #3] Output, Chest Tube Drainage 0 Amount [Mediastinal #2] Output, Chest Tube Drainage 0 Amount [Mediastinal #2] Output, Chest Tube Drainage 6 Amount [Mediastinal #2] Output, Chest Tube Drainage 10 Amount [Mediastinal #2] Output, Chest Tube Drainage 12 Amount [Mediastinal #2] Output, Chest Tube Drainage 4 Amount [Mediastinal #2] Output, Chest Tube Drainage 8 Amount [Mediastinal #2] Output, Chest Tube Drainage 0 Amount [Mediastinal #2] Output, Chest Tube Drainage 0 Amount [Mediastinal #1] Output, Chest Tube Drainage 0 Amount [Mediastinal #1] Output, Chest Tube Drainage 0 Amount [Mediastinal #1] Output, Chest Tube Drainage 0 Amount [Mediastinal #1] Output, Chest Tube Drainage 0 Amount [Mediastinal #1] Output, Chest Tube Drainage 0 Amount [Mediastinal #1] Output, Chest Tube Drainage 10 Amount [Mediastinal #1] Output, Chest Tube Drainage 0 Amount [Mediastinal #1] Weight 08/20/17 08/21/17 08/22/17 23:59 23:59 23:59 Weight 111.4 kg 110.3 kg Lungs are clear to percussion and auscultation. Heart is in a normal sinus rhythm. All incisions are healing well without signs of infection and the sternum is stable. Chest tube drainage is minimal and there is no air leak. - Labs 08/22/17 03:45 08/22/17 03:45 Lab Results, Last 24 hours 08/21/17 08/21/17 08/21/17 12:19 12:19 12:19 WBC 12.8 H D Hgb 11.5 L D Hct 31.9 L Plt Count 118 L INR 1.4 APTT 28.8 Sodium 139 Potassium 3.9 Chloride 109 H Carbon Dioxide 27 BUN 12 Creatinine 0.62 L Glucose 112 H Calcium 8.2 L Magnesium 2.1 08/21/17 08/22/17 08/22/17 18:55 03:45 03:45 WBC 12.6 H Hgb 11.2 L Hct 32.0 L Plt Count 142 INR 1.4 APTT 29.8 Sodium Potassium 4.9 D Chloride Carbon Dioxide BUN Creatinine Glucose Calcium Magnesium 08/22/17 03:45 WBC Hgb Hct Plt Count INR APTT Sodium 137 Potassium 5.1 Chloride 107 Carbon Dioxide 24 BUN 18 Creatinine 0.81 Glucose 149 H Calcium 7.9 L Magnesium 1.8 - VTE Documentation of Mechanical Device: Graduated compression elastic hosiery Consult Discharge Plan - Plan Referrals: Moises Boswell MD [Primary Care Provider] -
[2017-08-22] MEDS ORDERED: Furosemide 20 MG/2 ML VIAL IVP ONE (06:44)
[2017-08-22] MEDS: *HR* OxyCODONE/APAP 5/325 TABLET PO PRN ×3 (08:30→23:58)
[2017-08-22] MEDS: Ondansetron 4 MG/2 ML VIAL IVP PRN ×2 (10:56→23:46)
[2017-08-22] MEDS: Aspirin Enteric Coated 81 MG Tablet PO SCH ×2 (10:59→20:05)
[2017-08-22] MEDS: Isosorbide MONOnitrate (24 HR) 30 MG TAB.ER.24H PO SCH (10:59)
[2017-08-22] MEDS: Chlorhexidine Rinse 15 ML MOUTHWASH MM SCH ×2 (10:59→20:05)
[2017-08-22] MEDS ORDERED: D5% in Water 1,000 ML IVC PRN (11:55)
[2017-08-22] MEDS ORDERED: *HR* Dextrose 50 % in Water (Syg) 50 ML SYRINGE IVP PRN (11:55)
[2017-08-22] MEDS ORDERED: Dextrose Gel 15 GM/37.5 ML TUBE PO PRN ×2 (11:55)
[2017-08-22] MEDS: Insulin LISPRO 300 UNITS/3 ML VIAL SQ SCH ×2 (13:07→16:48)
[2017-08-22] MEDS ORDERED: Insulin LISPRO 300 UNITS/3 ML VIAL SQ SCH (21:00)
[2017-08-23] MEDS: niCARdipine 40 MG/200 ML MLS IVC SCH (04:28)
[2017-08-23] MEDS: *HR* OxyCODONE/APAP 5/325 TABLET PO PRN ×4 (04:31→21:56)
[2017-08-23] MEDS: Ketorolac 15 MG/ML VIAL IVP SCH ×3 (05:00→16:21)
[2017-08-23 05:10] LABS: Hematocrit 23.6 % (37.5-50.1); Mean Corpuscular HGB Conc 34.3 g/dL (31.6-35.5); Mean Corpuscular Hemoglobin 31.3 pg (28.0-33.3); Mean Corpuscular Volume 91.1 fL (83.0-100.0); Nucleated Red Blood Cells 0.8 /100 WBC (0); Platelet Count 264 K/mcL (140-400); Red Blood Count 2.59 M/mcL (4.19-5.50); Red Cell Distribution Width 14.9 % (11.5-14.5)
[2017-08-23 05:25] LABS: Hemoglobin 8.1 g/dL (12.9-16.9)
[2017-08-23 05:33] LABS: BUN/Creatinine Ratio 40 (6-26); Blood Urea Nitrogen 37 mg/dL (6-20); Calcium 8.1 mg/dL (8.6-10.3); Carbon Dioxide 28 mEq/L (23-29); Chloride 102 mEq/L (98-107); Glucose 122 mg/dL (70-105); Osmolality,Calculated 290 (280-300); Sodium 135 mEq/L (136-145); eGFR For African Americans > 60 (> 60); eGFR For Non-African Americans > 60 (> 60)
[2017-08-23] MEDS: *HR* FentaNYL (PF) 100 MCG/2 ML VIAL IVP PRN (06:04)
--- NOTE | 2017-08-23 06:19 | Cardiothoracic Progress Note ---
Date of Encounter: 08/23/17 Time of Encounter: 06:17 - Assessment and plan (1) Non-STEMI (non-ST elevated myocardial infarction) Current Visit: No Status: Acute The patient is recovering well from his CABG 3. He remained hemodynamic stable overnight. The chest tubes removed. The Kinney catheter will be removed. The patient will be transferred to the stepdown unit when a bed is available. The assessment and plan as outlined above was discussed with the patient and/or family members who expressed understanding and agreement. All questions were answered. - Subjective Procedure(s) Performed: POD#2 S/P CABG3 Interval history: The patient remained hemodynamically stable overnight. He is resting comfortably in his hospital bed has minimal complaints. Vital Signs, Last 4 Hours Temp Pulse Resp BP Pulse Ox 08/23/17 06:00 112 12 117/81 93 08/23/17 05:09 99.4 F 08/23/17 05:00 112 12 122/78 95 08/23/17 04:00 108 12 111/72 97 08/23/17 03:33 14 123/70 92 08/23/17 03:00 104 12 123/70 98 Oxgyen Flow Rate Oxygen Flow Rate (LPM) 2 Clinical Data, last 8 Hours Output, Chest Tube Drainage 16 Amount [Mediastinal #3] Output, Chest Tube Drainage 2 Amount [Mediastinal #3] Output, Chest Tube Drainage 10 Amount [Mediastinal #2] Output, Chest Tube Drainage 10 Amount [Mediastinal #1] Output, Chest Tube Drainage 10 Amount [Mediastinal #1] Weight 08/21/17 08/22/17 08/23/17 23:59 23:59 23:59 Weight 110.3 kg - Physical Examination General: Conversant, No Apparent Distress Neck: No JVD, Normal carotid pulses Cardiac: Reg Rate and Rhythm, Normal S1 and S2, No Murmur Incision: No signs of infection, Dry/intact dressing Sternum: Stable Chest tubes: Minimal drainage, Other (No air leak) Lungs: Normal Breath Sounds, No Wheeze, Rales, Rhonchi Neuro: Alert and responsive, No focal deficits noted Vascular: Normal capillary refill Extremities: No Clubbing, No Cyanosis, No Edema, Normal Pulses - Labs 08/23/17 04:40 08/23/17 04:40 Lab Results, Last 24 hours 08/23/17 08/23/17 04:40 04:40 WBC 16.7 H Hgb 8.1 L D Hct 23.6 L Plt Count 264 D Sodium 135 L Potassium 4.0 Chloride 102 Carbon Dioxide 28 BUN 37 H Creatinine 0.92 Glucose 122 H Calcium 8.1 L - VTE Documentation of Mechanical Device: Graduated compression elastic hosiery Consult Discharge Plan - Plan Referrals: Moises Boswell MD [Primary Care Provider] -
[2017-08-23 06:24] LABS: Basophils # 0.3 K/mcL (0.0-0.2); Lymphocytes # 2.7 K/mcL (0.6-4.6); Neutrophils # 13.7 K/mcL (1.6-8.9)
[2017-08-23 06:25] LABS: Hypochromasia Present (Not Present); Platelet Estimate Normal (Normal)
[2017-08-23] MEDS ORDERED: *HR* Heparin 5,000 UNIT/ML VIAL SQ SCH (06:30)
[2017-08-23] MEDS ORDERED: Melatonin 3 MG TABLET PO PRN (07:47)
[2017-08-23] MEDS ORDERED: Naloxone 0.4 MG/ML INJ IVP PRN (07:47)
[2017-08-23] MEDS ORDERED: Dextrose Gel 15 GM/37.5 ML TUBE PO PRN ×4 (07:47)
[2017-08-23] MEDS ORDERED: D5% in Water 1,000 ML IVC PRN (07:47)
[2017-08-23] MEDS ORDERED: *HR* Promethazine 25 MG/ML VIAL IVP PRN (07:47)
[2017-08-23] MEDS ORDERED: Acetaminophen 325 MG TABLET PO PRN (07:47)
[2017-08-23] MEDS ORDERED: Nitroglycerin 0.4 MG TAB.SUBL SL PRN (07:47)
[2017-08-23] MEDS ORDERED: *HR* FentaNYL (PF) 100 MCG/2 ML VIAL IVP PRN (07:47)
[2017-08-23] MEDS ORDERED: *HR* Dextrose 50 % in Water (Syg) 50 ML SYRINGE IVP PRN ×3 (07:47)
[2017-08-23] MEDS: Chlorhexidine Rinse 15 ML MOUTHWASH MM SCH ×2 (08:30→20:19)
[2017-08-23] MEDS: Aspirin Enteric Coated 81 MG Tablet PO SCH ×2 (08:30→20:17)
[2017-08-23] MEDS: Furosemide 20 MG/2 ML VIAL IVP SCH ×2 (08:31→20:18)
[2017-08-23] MEDS ORDERED: Furosemide 20 MG/2 ML VIAL IVP SCH (09:00)
[2017-08-23] MEDS: Ondansetron 4 MG/2 ML VIAL IVP PRN (12:03)
[2017-08-23] MEDS: Insulin LISPRO 300 UNITS/3 ML VIAL SQ SCH ×3 (12:03→20:19)
[2017-08-23] MEDS: Insulin NPH 100 UNIT/ML (x5UNIT) SQ SCH (16:22)
[2017-08-23] MEDS: *HR* Heparin 5,000 UNIT/ML VIAL SQ SCH (18:22)
[2017-08-24] MEDS: *HR* OxyCODONE/APAP 5/325 TABLET PO PRN (02:36)
[2017-08-24] MEDS: Ketorolac 15 MG/ML VIAL IVP SCH ×4 (02:39→16:20)
[2017-08-24] MEDS: *HR* Heparin 5,000 UNIT/ML VIAL SQ SCH ×2 (05:38→16:16)
[2017-08-24] MEDS: Aspirin Enteric Coated 81 MG Tablet PO SCH ×2 (08:33→20:32)
[2017-08-24] MEDS: Furosemide 20 MG/2 ML VIAL IVP SCH ×2 (08:33→20:32)
[2017-08-24] MEDS: Chlorhexidine Rinse 15 ML MOUTHWASH MM SCH ×2 (08:33→20:32)
[2017-08-24] MEDS: Insulin LISPRO 300 UNITS/3 ML VIAL SQ SCH ×4 (08:40→20:36)
[2017-08-24] MEDS: Insulin NPH 100 UNIT/ML (x5UNIT) SQ SCH ×2 (08:41→16:16)
--- NOTE | 2017-08-24 09:26 | Cardiothoracic Progress Note ---
Date of Encounter: 08/24/17 Time of Encounter: 09:25 - Assessment and plan (1) CAD (coronary artery disease) Current Visit: Yes Status: Chronic Patient is recovering well from his CABG 3. He was transferred to the stepdown unit yesterday evening and was able to walk in the hallways twice without difficulty. He will continue ambulating today and if he continues to do well, the patient will be discharged home tomorrow morning. The assessment and plan as outlined above was discussed with the patient and/or family members who expressed understanding and agreement. All questions were answered. Qualifiers: Coronary Disease-Associated Artery/Lesion type: [place] artery [place] vs. transplanted heart: [place] heart Associated angina: without angina Qualified Code(s): I25.10 - Atherosclerotic heart disease of [place] coronary artery without angina pectoris - Subjective Procedure(s) Performed: POD#3 S/P CABG3 Interval history: The patient remained hemodynamically stable overnight. He is resting comfortably in his hospital bed has minimal complaints. He was able to ambulate in the hallways yesterday without difficulty. Vital Signs, Last 4 Hours Temp Pulse Resp BP Pulse Ox 08/24/17 07:53 16 94 08/24/17 07:05 98.7 F 103 16 112/63 94 Oxgyen Flow Rate Oxygen Flow Rate (LPM) 0 Clinical Data, last 8 Hours Output, Urine Amount 600 Weight 08/22/17 08/23/17 08/24/17 23:59 23:59 23:59 Weight 109.6 kg - Physical Examination General: Conversant, No Apparent Distress Neck: No JVD, Normal carotid pulses Cardiac: Reg Rate and Rhythm, Normal S1 and S2, No Murmur Incision: No signs of infection, Dry/intact dressing Sternum: Stable Pacing Wires: In place Lungs: Normal Breath Sounds, No Wheeze, Rales, Rhonchi Neuro: Alert and responsive, No focal deficits noted Vascular: Normal capillary refill Extremities: No Clubbing, No Cyanosis, No Edema - Labs 08/23/17 04:40 08/23/17 04:40 - VTE Documentation of Mechanical Device: Graduated compression elastic hosiery Consult Discharge Plan - Plan Referrals: Shiva Mohr DO [Partnered Physician] - 09/12/17 9:15 am Moises Boswell MD [Primary Care Provider] - 09/03/17 3:15 pm Raulito Stein MD [Partnered Physician] - 09/13/17 1:45 pm
[2017-08-24] MEDS ORDERED: Ibuprofen 400 MG TABLET PO PRN (14:12)
[2017-08-24] MEDS ORDERED: Bisacodyl 10 MG RECTAL SUPPOSITORY RC ONE (14:14)
[2017-08-24] MEDS: Ondansetron 4 MG/2 ML VIAL IVP PRN (15:05)
[2017-08-25] MEDS: Ketorolac 15 MG/ML VIAL IVP SCH ×2 (00:49→06:28)
[2017-08-25] MEDS: *HR* Heparin 5,000 UNIT/ML VIAL SQ SCH (06:30)
--- NOTE | 2017-08-25 07:14 | Discharge Summary ---
Orders not resulted at time of discharge: Pending orders 08/20/17 09:34 Red Blood Cells [BBK] Routine Type and Screen [BBK] Routine Date of Encounter: 08/25/17 Time of Encounter: 07:12 - Discharge Diagnosis (1) CAD (coronary artery disease) Priority: Primary Status: Chronic Qualifiers: Coronary Disease-Associated Artery/Lesion type: [place] artery [place] vs. transplanted heart: [place] heart Associated angina: without angina Qualified Code(s): I25.10 - Atherosclerotic heart disease of [place] coronary artery without angina pectoris - Hospital Course Hospital course: Mr. Multani is a 41 year old type II diabetic man with known CAD. The patient has undergone PCI with stent placement 6 during the last 2 years. He has had recurrent substernal chest pain radiating down his left arm and associated headache throughout this time. A stress test revealed inferior and inferolateral ischemia and an LVEF 55%. The patient underwent cardiac catheterization and was found to have severe 3 vessel CAD. In particular the patient had a 60% proximal LAD lesion, a 95% mid LCx lesion, and a 90% mid RCA lesion. He was recommended for CABG. He had been on Plavix for his stents and this was stopped for 5 days prior to CABG. The patient underwent CABG 3 with RCA endarterectomy on 08/21/2017. His postoperative course was uncomplicated and he was transferred to the telemetry unit on POD#2. He was ambulating without complaints of substernal chest pain or shortness of breath. The patient was discharged home on POD#4. - Time Spent with Patient Total time spent providing and/or coordinating discharge services: - Discharge Medications Prescriptions: OxyCODONE/APAP 5/325 [Percocet 5/325 MG] 1 each PO Q4HR PRN 7 Days #42 tablet PRN Reason: Severe Pain Home Medications: Insulin NPH, HUMAN [HumuLIN N] 30 unit SQ BID 02/21/16 [History] Aspirin Enteric Coated [Aspirin EC] 81 mg PO BID #30 tablet 01/11/17 [Rx] Atorvastatin [Lipitor] 80 mg PO HS #30 tablet 01/11/17 [Rx] Clopidogrel [Plavix] 75 mg PO DAILY #30 tablet 01/11/17 [Rx] Lisinopril [Zestril] 5 mg PO DAILY #30 tablet 01/11/17 [Rx] Nitroglycerin 0.4 mg SL Q5M PRN #30 tab.subl 01/11/17 [Rx] Carvedilol [Carvedilol] 3.125 mg PO BID 08/16/17 [History] Carvedilol [Coreg] 3.125 mg PO BIDWM tablet 08/25/17 [Rx] OxyCODONE/APAP 5/325 [Percocet 5/325 MG] 1 each PO Q4HR PRN 7 Days #42 tablet [Rx] Allergies/Adverse Reactions: 3 Allergy/AdvReac Type Severity Reaction Status Date / Time No Known Allergies Allergy Verified 08/16/17 16:05 Date of admission: 08/18/17 16:58 Primary care physician: Moises Boswell MD Consults: 08/21/17 11:43 Consult to Cardiac Rehabilitation-Phase1 [CONS] Routine Comment: Reason for Consult: Post open heart Call Completed: Yes Consult to [employer] [CONS] Routine Reason for SW Consult: open heart Procedure(s) Performed: 1. Cardiac catheterization performed 08/17/2017. 2. CABG3 (GIBSON to LAD, SVG to OM1, SVG to PDA) performed 08/21/2017. 3. RCA endarterectomy performed 08/21/2017. 4. Endoscopic vein harvesting, greater saphenous vein from right lower extremity performed 08/21/2017. Discharging clinician: Ilya Trinidad Anticipated date of discharge: 08/25/17 Physical Examination Vital Signs, Last 4 Hours Pulse Resp BP Pulse Ox 08/25/17 04:47 102 18 94/62 08/25/17 04:08 98 18 94/62 98 General: Conversant, No Apparent Distress HEENT: Atraumatic, Normocephaly, Trachea midline Neck: No JVD, Normal carotid pulses Cardiac: Reg Rate and Rhythm, Normal S1 and S2, No Murmur Lungs: Normal Breath Sounds, No Wheeze, Rales, Rhonchi Neuro: Alert and responsive, No focal deficits noted Vascular: Normal capillary refill Abdomen: Soft, Non-tender Skin: No rashes noted on visualized skin Extremities: No Clubbing, No Cyanosis, No Edema - Patient Status Disposition: Home, Self-Care Condition: Good Functional capacity at discharge: independent ambulation Overall status at discharge: patient is progressing back to baseline - Discharge Instructions Follow Up With: Shiva Mohr DO [Partnered Physician] - 09/12/17 9:15 am Moises Boswell MD [Primary Care Provider] - 09/03/17 3:15 pm Raulito Stein MD [Partnered Physician] - 09/13/17 1:45 pm - Diet and Activity Activity: sternal precautions, no driving for four weeks, no lifting greater than 10 pounds for eight weeks Diet: diabetic diet [facility] Aspirin Cont/Prescribed at DC: Yes Beta Luis Cont/Prescribed at DC: Yes Statin Cont/Prescribed at DC: Yes JAMES/ARB Cont/Prescribed at DC: Yes - VTE Documentation of Mechanical Device: Graduated compression elastic hosiery
[2017-08-25 07:25] VITALS: BP 124/70
[2017-08-25] MEDS: Aspirin Enteric Coated 81 MG Tablet PO SCH (07:56)
[2017-08-25] MEDS: Insulin NPH 100 UNIT/ML (x5UNIT) SQ SCH (07:57)
[2017-08-25] MEDS: Chlorhexidine Rinse 15 ML MOUTHWASH MM SCH (07:57)
[2017-08-25] MEDS: Furosemide 20 MG/2 ML VIAL IVP SCH (07:58)
[2017-08-25] MEDS: Insulin LISPRO 300 UNITS/3 ML VIAL SQ SCH (07:58)
[2017-08-25] MEDS: Ondansetron 4 MG/2 ML VIAL IVP PRN (10:10)
== END 2017-08-25 11:41 | disposition home or self-care (01) | DRG 234 ==
LOC: 3ANU 16:02 → EMEROO 16:02 → SUATTDRO 19:59 → 3ANU 20:36 → 2NNU 08-17 15:40 → ICNU 08-21 09:20 → 2NNU 08-23 15:19
PROVIDERS: ADMIT Internal Medicine; ATTEND Internal Medicine